=== PATIENT | female | born 1935 | race Caucasian/White ===

== ENCOUNTER 2018-02-08 22:43 | Inpatient (IN) | payer OTHER, MEDICARE ==
--- OUTSIDE RECORDS SUMMARY | 2018-02-08 22:44 | XMS REPORT | Clinical Summary ---
:1935 Author Organization [facility] Address [address] [place] [address] Care Team Providers Name Role Phone Shannon Kyle MD Primary Care Provider Unavailable Allergies Active Allergy Reactions Severity Noted Date Comments Cefazolin 10/10/2015 Codeine 10/10/2015 Propoxyphene N-Acetaminophen 10/10/2015 Current Medications Prescription Sig. Disp. Refills Start Date End Date Status LANTUS 100 unit/mL 09/22/2015 Active injection clopidogrel (PLAVIX) Take 1 tablet (75 mg 90 tablet 3 10/21/2015 Active 75 mg tablet total) by mouth daily. lisinopril Take 1 tablet (10 mg 90 tablet 3 10/21/2015 Active (PRINIVIL,ZESTRIL) total) by mouth tablet daily. metoprolol succinate Take 1 tablet (25 mg 90 tablet 3 10/21/2015 Active XL (TOPROL-XL) 25 MG total) by mouth 24 hr tablet daily. nitroglycerin Place 1 patch (0.2 90 patch 3 10/21/2015 Active (NITRODUR) mg total) on the skin daily. pantoprazole Take 1 tablet (40 mg 90 tablet 3 10/21/2015 Active (PROTONIX) 40 MG EC total) by mouth tablet daily. simvastatin (ZOCOR) Take 1 tablet (20 mg 90 tablet 3 10/21/2015 Active 20 MG tablet total) by mouth nightly. insulin GLARGINE Inject 30 Units 1 pen 3 10/27/2015 Active (LANTUS) 100 unit/mL under the skin every (3 mL) insulin pen morning before breakfast. pen needle, diabetic Use daily as 100 each 2 10/28/2015 Active (BD ULTRA-FINE MICHAEL directed for insulin PEN NEEDLES) 32 administration gauge x 5/32" needle nitroglycerin 04/05/2016 Active (NITRODUR) 0.4 mg/hr RANEXA 500 mg 12 hr 02/19/2016 Active ER tablet Active Problems Problem Noted Date Dementia without behavioral disturbance 04/13/2016 Essential hypertension 10/21/2015 Diabetes mellitus 10/10/2015 Herpes zoster 10/10/2015 HLD (hyperlipidemia) 10/10/2015 Knee pain 10/10/2015 Pain in extremity 10/10/2015 Swelling of limb 10/10/2015 Vertigo, late effect of cerebrovascular disease 10/10/2015 Vitamin B12 deficiency without anemia 10/10/2015 Coronary arteriosclerosis 10/10/2015 Immunizations Name Dates Previously Given Next Due FLUZONE HIGH-DOSE PF 04/13/2016, 10/21/2015 Pneumococcal Conjugate 13-Valent 10/21/2015 Pneumococcal Polysaccharide 08/12/2011 Tdap 08/12/2011 Family History Medical History Relation Name Comments Emphysema Father Heart failure Father Diabetes Mother Hypertension Mother Uterine cancer Mother Breast cancer Sister Relation Name Status Comments Father Mother Sister Social History Tobacco Use Types Packs/Day Years Used Date Never Smoker Smokeless Tobacco: Never Used Alcohol Use Drinks/Week oz/Week Comments No Sex Assigned at Date Recorded Not on file Last Filed Vital Signs Not on file Plan of Treatment Health Maintenance Due Date Last Done Comments DIABETIC RETINAL EYE EXAM 11/13/1945 SHINGRIX VACCINE (#1) 11/13/1987 ZOSTER VACCINE 1997 DIABETIC FOOT EXAM 06/12/2016 06/12/2015, 06/12/2015 URINE MICROALBUMIN 04/13/2017 04/13/2016, 04/13/2016, 10/21/2015 INFLUENZA VACCINE 03/12/2018 04/13/2016, 10/21/2015 PNEUMOCOCCAL POLYSACCHARIDE VACCINE Completed 08/12/2011 AGE 65 AND OVER PNEUMOCOCCAL-13 Completed 10/21/2015 Results Not on fileafter 02/07/2017 Insurance Payer Benefit Plan / Group Subscriber ID Type Phone Address MEDICARE MEDICARE PART A AND B xxxxxxxxxx Medicare [place], [place] AARP AARP SUPPLEMENT xxxxxxxxxxx Commercial [phone] [place] [id number]
--- OUTSIDE RECORDS SUMMARY | 2018-02-08 22:45 | XMS REPORT ---
:1935 [facility] Address [address] [place] [address] [address] [place] [address] Care Team Providers Name Role Phone DR MERISSA HENNING Unavailable Unavailable Problems This patient has no known problems. Allergies, Adverse Reactions, Alerts This patient has no known allergies or adverse reactions. Medications This patient has no known medications. Encounters Start End Encounter Admission Attending Care Care Encounter Date/Time Date/Time Type Type Clinicians Facility Department ID 2017-09-10 2017-10-04 Inpatient E [facility] [id number] 21:32:00 16:21:00 MERISSA Results Test Description Test Time Test Comments Text Results Atomic Results Result Comments BASIC METABOLIC PANEL 2017-10-03 15:14:00 Test Item Value Reference Range Comments GLUCOSE (test code=06D) 170 mg/dL 75-100 SODIUM (test code=01A) 131 mmol/L 136-145 POTASSIUM (test code=01B) 4.7 mmol/L 3.6-5.1 CHLORIDE (test code=04A) 101 mmol/L 98-107 CO2 (test code=02A) 27 mmol/L 22-32 ANION GAP (test code=ANG) 7.7 mmol/L BUN (test code=05D) 21 mg/dL 7-18 CREATININE (test code=03E) 1.2 mg/dL 0.4-1.1 BUN/CREA (test code=BCR) 18 12-20 CALCIUM (test code=09D) 9.6 mg/dL 8.3-9.5 U/S VENOUS DOPPLER MICHELLE LOW [id number] 17:13:19Bilateral lower extremity venous DopplerLocation code: R1ISASIDNP HISTORY: M79.89: OTHER SPECIFIED SOFT TISSUE DISORDERS, swellingTechnique: Grayscale, color, and Doppler spectral waveform analysis ofthe deepveins of the bilateral lower extremity deep veins was performed.FINDINGS: Normal color flowand compressibility is present within bilateralcommon femoral, superficial femoral, popliteal and posterior tibial veins.There is a large simple appearing cyst within the right popliteal fossameasuring5.2 x 4.7 x 3.1 cm.With the left popliteal fossa, there is a large simple-appearing cyst, as wellmeasuring 4.2 x 3.3 x 0.8 cm.IMPRESSION:1. Negative for DVT bilaterally.2. Simple appearing Reyez's cysts within the popliteal fossa bilaterally.B12 [id number] 06:45:00 Test Item Value Reference Range Comments VIT B12 (test code=A60) 213.0 pg/mL 180.0-914.0 [id number] 06:45:00 Test Item Value Reference Range Comments FOLATE (test code=A75) 33.8 ng/mL 3.1-17.5 LIPID [id number] 06:45:00 Test Item Value Reference Range Comments CHOLESTROL (test code=44A) 116 mg/dL 140-200 TRIGLYCERI (test code=42B) 111 mg/dL <=149 HDL (test code=83D) 60.0 mg/dL 40.0-60.0 LDL (test code=34B) 52 mg/dL <=99 CHL/HDL (test code=CHR) 1.9 0.0-3.4 THYROID PANEL/SCREEN (TSH)2017-09-11 06:31:00 Test Item Value Reference Range Comments TSH (test code=A57) 2.520 uIU/mL 0.358-3.740 [id number] 06:25:00 Test Item Value Reference Range Comments PREALBUMIN (test code=08E) 21 mg/dL 18-38 [id number] 06:13:00 Test Item Value Reference Range Comments Hb A1C % (test code=HBA) 6.7 % 4.2-6.3 [id number] 06:06:00 Test Item Value Reference Range Comments MAGNESIUM (test code=48A) 1.8 mg/dL 1.8-2.4 ALCOHOL BLOOD (ETOH)2017-09-10 19:23:00 Test Item Value Reference Range Comments ETOH (test code=HALC) ETHANOL The result is to be used only for medical purposes ALCOHOL (test code=56A) <10 mg/dL <=10 COMPREHENSIVE METABOLIC [id number] 19:22:00 Test Item Value Reference Range Comments GLUCOSE (test code=06D) 120 mg/dL 75-100 SODIUM (test code=01A) 136 mmol/L 136-145 POTASSIUM (test code=01B) 4.0 mmol/L 3.6-5.1 CHLORIDE (test code=04A) 104 mmol/L 98-107 CO2 (test code=02A) 24 mmol/L 22-32 ANION GAP (test code=ANG) 12.0 mmol/L BUN (test code=05D) 12 mg/dL 7-18 CREATININE (test code=03E) 0.9 mg/dL 0.4-1.1 BUN/CREA (test code=BCR) 14 12-20 CALCIUM (test code=09D) 9.0 mg/dL 8.3-9.5 BILI TOTAL (test code=11A) 0.6 mg/dL 0.2-1.0 PROTEIN (test code=07D) 7.0 g/dL 6.4-8.2 ALBUMIN (test code=08D) 3.9 g/dL 3.5-4.8 GLOBULIN (test code=GLB) 3.1 g/dL 1.5-3.8 ALB/GLOB (test code=AGRR) 1.3 1.0-2.6 ALK PHOS (test code=35A) 75 IU/L 42-121 AST (test code=30A) 12 IU/L <=42 ALT (test code=31A) 16 IU/L <=78 LIVER [id number] 19:22:00 Test Item Value Reference Range Comments BILI TOTAL (test code=11A) 0.6 mg/dL 0.2-1.0 BILI DIRCT (test code=12A) 0.2 mg/dL 0.0-0.2 BILI INDIR (test code=BILII) 0.4 mg/dL <=0.8 PROTEIN (test code=07D) 7.0 g/dL 6.4-8.2 ALBUMIN (test code=08D) 3.9 g/dL 3.5-4.8 GLOBULIN (test code=GLB) 3.1 g/dL 1.5-3.8 ALB/GLOB (test code=AGRR) 1.3 1.0-2.6 ALK PHOS (test code=35A) 75 IU/L 42-121 AST (test code=30A) 12 IU/L <=42 ALT (test code=31A) 16 IU/L <=78 [id number] 19:22:00 Test Item Value Reference Range Comments ACETAMINPH (test code=94M) <2.0 ug/mL 10.0-30.0 [id number] 19:22:00 Test Item Value Reference Range Comments SALICYLATE (test code=94B) <1.7 mg/dL 2.8-20.0 CARDIAC [id number] 19:20:00 Test Item Value Reference Range Comments TROPONIN I (test code=A84) <0.015 ng/mL 0.000-0.045 CKMB (test code=A49) 1.3 ng/mL <=3.6 CPK (test code=32A) 44 IU/L 26-192 AMMONIA [id number] 19:15:00 Test Item Value Reference Range Comments AMMONIA (test code=54A) 11 umol/L 11-32 CBC (INCLUDES AUTOMATED DIFFERENTIAL)2017-09-10 18:56:00 Test Item Value Reference Range Comments WBC (test code=WBC) 9.3 10\S\3/uL 4.5-11.0 RBC (test code=RBC) 3.87 10\S\6/uL 3.80-5.80 HGB (test code=HBG) 11.6 g/dL 12.0-15.5 HCT (test code=HCT) 33.7 % 35.0-44.0 MCV (test code=MCV) 87.1 fL 81.0-99.0 MCH (test code=MCH) 30.0 pg 27.0-31.0 MCHC (test code=MCHC) 34.4 g/dL 32.0-36.0 RDW (test code=RDW) 13.2 % 11.5-14.5 PLT (test code=PLT) 141 10\S\3/uL 130-400 MPV (test code=MPV) 11.8 fL 9.4-12.4 NEUTROP # (test code=NE#) 7.2 10\S\3/uL 1.6-8.0 LYMPH # (test code=LY#) 1.3 10\S\3/uL 1.1-3.5 MONOCYTE # (test code=MO#) 0.6 10\S\3/uL 0.0-1.1 EOSINOPH # (test code=EO#) 0.1 10\S\3/uL 0.0-0.7 BASOPHIL # (test code=BA#) 0.1 10\S\3/uL 0.0-0.3 IG # (test code=IG#) 0.06 10\S\3/uL 0.00-0.06 NRBC # (test code=NRBC#) 0.00 10\S\3/uL 0.00-0.01 NEUTROPH % (test code=NE%) 77.3 % 35.0-73.0 LYMPH % (test code=LY%) 14.5 % 20.0-55.0 MONO % (test code=MO%) 6.3 % 2.5-10.0 EOSINOPH % (test code=EO%) 0.8 % 0.0-5.0 BASOPHIL % (test code=BA%) 0.5 % 0.0-2.0 IG % (test code=IG%) 0.6 % 0.0-0.8 NRBC% (test code=NRBC%) 0.0 % 0.0-0.2 MANDIFF (test code=MDIFF) NO NO RBC MORPH (test code=RBCMOR) NORMAL CT HEAD W/O [id number] 18:40:44Noncontrast CT of the brainLOCATION: R 16Clinical indication:Psychotic behaviorComparison: None5 mmaxial series are provided from the skull base to vertex withoutintravenous contrast. Coronal and sagittal 5 mm reconstructions are alsoperformed One or more of the following dose reduction techniques were used:Automated exposure control, adjustment of the MA and/or kV according to patientsize, and/or utilization of iterative reconstruction technique. DLP 845 mGy*cm.There is moderate cerebral atrophy.Moderate ventricular enlargement isdemonstrated which may represent evidence of hydrocephalus. Whitematterlucency, particularly in the frontal lobes is demonstrated.There is no evidence of mass, mass effect, hemorrhage, acute infarct,extra-axial collection or calvarial abnormality. Visualized portions of theparanasal sinuses are well aerated.Impression:1. Ventricles are moderately enlarged and may be enlarged disproportionate toatrophy. Hydrocephalus is considered.2. Moderate atrophy and white matter lucency likely representing small vesseldisease.3. No evidence of intracranial hemorrhageDRUGS OF [id number] 18:34:00 Test Item Value Reference Range Comments DRUG SCRN (test code=HDOA) URINE DRUG SCREEN This is an unconfirmed screening result and should not be used for non-medical purposes CANNABINOD (test code=88C) Negative NEGATIVE AMPHETAMINE (test code=84A) Negative NEGATIVE BENZODIAZP (test code=86A) Negative NEGATIVE BARBITURAT (test code=85A) Negative NEGATIVE OPIATES (test code=92B) Negative NEGATIVE COCAINE (test code=87A) Negative NEGATIVE PHENCYCLID (test code=66A) Negative NEGATIVE METHADONE (test code=64A) Negative NEGATIVE DOAH (test code=DOAH) URINE DRUG SCREEN Cut-off values are as follows: ---- Cannabinoids 50 ng/mL Cocaine 300 ng/mL Amphetamines 1000 ng/mL Phencyclidine 25 ng/mL Benzodiazepines 200 ng.mL Methadone 300 ng/mL Barbiturates 200 ng/mL Opiates 2000 ng/mL [id number] 18:27:00 Test Item Value Reference Range Comments COLOR (test code=COLU) YELLOW YELLOW CLARITY (test code=CLA) CLEAR CLEAR GLUCOSE UR (test code=UA GLUCOSE) NEGATIVE NEGATIVE BILI UR (test code=BILE) NEGATIVE NEGATIVE KETONES UR (test code=MISSY) NEGATIVE NEGATIVE SP GRAVITY (test code=SPGR) 1.004 1.005-1.030 PH UR (test code=PH) 7.0 4.5-8.0 PROTEIN UR (test code=PU) NEGATIVE NEGATIVE UROBIL UR (test code=UROQ) 1.0 EU/dL 0.2-1.0 NITRITE UR (test code=NITRITE) NEGATIVE NEGATIVE BLOOD UR (test code=UA BLOOD) NEGATIVE NEGATIVE LEUK ES UR (test code=LEUK) NEGATIVE NEGATIVE AUAM (test code=AUAM) NO NO XR CHEST 1 VIEW [id number] 17:33:50STUDY: Chest radiographHISTORY: Psychiatric treatment change.COMPARISON: NoneTECHNIQUE: Frontal viewof the chest.LOCATION: [id number]:Median sternotomy wires are noted.The cardiac silhouette is unremarkable. Faint bibasilar densities likelyreflect subsegmental atelectasis. Otherwise, there is no other focalconsolidation. There is no pleural effusion or pneumothorax.No acute osseous abnormalities are identified.IMPRESSION:1. Faint bibasilar densities likely reflecting subsegmental atelectasis.Otherwise, no radiographic evidence for acute pulmonary abnormality.
[2018-02-08 23:29] LABS: Absolute Lymphocytes (CBC) 1.5 K/uL (0.7-4.9); Absolute Monocytes 1.1 K/uL (0.1-1.3); Absolute Neutrophil 10.5 K/uL (1.8-8.0); Basophils % 0.7 % (0-1.3); Eosinophils % 0.1 % (0-4.4); Hematocrit 44.7 % (36.0-45.0); Lymphocytes % 11.1 % (15.3-44.8); MCH 30.4 pg (27.0-35.0); MCV 92.1 fL (80-100); MPV 10.4 fL (7.6-11.3); Monocytes % 8.3 % (3.3-12.3); RBC Red Blood Cell Count 4.86 M/uL (3.86-4.86)
[2018-02-08 23:37] LABS: Protime INR 0.99
[2018-02-08] MEDS ORDERED: NA CHLORIDE 0.9% 1,000 ML ONE (23:39)
[2018-02-08 23:46] LABS: Albumin 3.9 g/dL (3.4-5.0); Bilirubin Direct 0.1 mg/dL (0-0.2); Bilirubin Total 0.4 mg/dL (0.2-1.0); Magnesium 2.1 mg/dL (1.8-2.4); Potassium 5.1 mmol/L (3.5-5.1)
[2018-02-09] MEDS ORDERED: NA CHLORIDE 0.9% 1,000 ML ONE (00:05)
[2018-02-09 00:45] LABS: Urine Blood NEGATIVE (NEG); Urine Glucose NEGATIVE (NEG); Urine Protein NEGATIVE (NEG); Urine pH 6.5 (5.0-7.0)
[2018-02-09] MEDS ORDERED: CEFTRIAXONE/SWI 1gm 1 GM/10 ML SYR ONE (01:06)
[2018-02-09] MEDS ORDERED: ASPIRIN 81 MG CHEWABLE TABLET ONE (01:06)
[2018-02-09] MEDS ORDERED: ENOXAPARIN 60 MG/0.6 ML SQ ONE (01:07)
--- NOTE | 2018-02-09 01:07 | EDPHYS ---
Physician Documentation [facility] Name: Lizzy Peralta Age: 82 yrs Sex: Female : 1935 Arrival Date: 02/08/2018 Time: 23:02 Bed 2 Private MD: ED Physician Cayden Khan HPI: 02/09 01:01 This 82 yrs old Female presents to ER via EMS with complaints of Altered zackery Mental Status. 01:01 The patient presents with decreased mental status. Onset: The symptoms/episode zackery began/occurred last night. Possible causes: unknown. Associated signs and symptoms: The patient has no apparent associated signs or symptoms. Patient's baseline: Neuro:. The patient has not experienced similar symptoms in the past. Historical: - Allergies: 02/08 23:20 Codeine; lp1 23:20 Levaquin; lp1 - Home Meds: 23:20 Aricept 23 mg oral tab nightly [Active]; aspirin 81 mg Oral chew 1 tab once daily lp1 [Active]; atorvastatin 10 mg Oral tab 1 tab nightly [Active]; Depakote Sprinkles 125 mg Oral cpSP 3 caps 3 times per day [Active]; Fish Oil 500 mg oral cap 2 cap daily [Active]; Lasix 40 mg Oral tab 1 tab once daily [Active]; lisinopril 5 mg oral tab twice a day [Active]; melatonin 3 mg Oral tab nightly [Active]; metoprolol tartrate 50 mg Oral tab nightly [Active]; multivitamin with minerals oral tab daily [Active]; nitroglycerin 0.4 mg/hr Topical pt24 1 patch once daily [Active]; Novolog Flexpen 100 unit/mL subcutaneous inpn per sliding scale [Active]; Plavix 75 mg Oral tab 1 tab once daily [Active]; potassium chloride 20 mEq Oral TbER 2 tab once daily [Active]; Ranexa 500 mg Oral Tb12 1 tab 2 times per day [Active]; Vitamin C 500 mg oral tab twice a day [Active]; Vitamin D3 2,000 unit oral cap daily [Active]; Xopenex Inhl 2 puff every 4 hours [Active]; - PMHx: 23:20 dysphagia; Alzheimers; Diabetes - IDDM; Hyperlipidemia; Dementia; GERD; CAD; TIA; lp1 Hypertension; Asthma; Angina; - Immunization history:: Adult Immunizations up to date. - Social history:: Smoking status: unknown. - Ebola Screening: : No symptoms or risks identified at this time. - Family history:: not pertinent. ROS: 02/09 01:01 Constitutional: Negative for fever, chills, and weight loss, Eyes: Negative for injury, zackery pain, redness, and discharge, ENT: Negative for injury, pain, and discharge, Neck: Negative for injury, pain, and swelling, Cardiovascular: Negative for chest pain, palpitations, and edema, Respiratory: Negative for shortness of breath, cough, wheezing, and pleuritic chest pain, Abdomen/GI: Negative for abdominal pain, nausea, vomiting, diarrhea, and constipation, Back: Negative for injury and pain, : Negative for injury, bleeding, discharge, and swelling, MS/Extremity: Negative for injury and deformity, Skin: Negative for injury, rash, and discoloration, Psych: Negative for depression, anxiety, suicide ideation, homicidal ideation, and hallucinations, Allergy/Immunology: Negative for hives, rash, and allergies, Endocrine: Negative for neck swelling, polydipsia, polyuria, polyphagia, and marked weight changes, Hematologic/Lymphatic: Negative for swollen nodes, abnormal bleeding, and unusual bruising. Neuro: Positive for altered mental status, weakness. Exam: 01:01 Constitutional: This is a well developed, well nourished patient who is awake, alert, zackery and in no acute distress. Head/Face: Normocephalic, atraumatic. Eyes: Pupils equal round and reactive to light, extra-ocular motions intact. Lids and lashes normal. Conjunctiva and sclera are non-icteric and not injected. Cornea within normal limits. Periorbital areas with no swelling, redness, or edema. ENT: Nares patent. No nasal discharge, no septal abnormalities noted. Tympanic membranes are normal and external auditory canals are clear. Oropharynx with no redness, swelling, or masses, exudates, or evidence of obstruction, uvula midline. Mucous membranes moist. Neck: Trachea midline, no thyromegaly or masses palpated, and no cervical lymphadenopathy. Supple, full range of motion without nuchal rigidity, or vertebral point tenderness. No Meningismus. Chest/axilla: Normal chest wall appearance and motion. Nontender with no deformity. No lesions are appreciated. Cardiovascular: Regular rate and rhythm with a normal S1 and S2. No gallops, murmurs, or rubs. Normal PMI, no JVD. No pulse deficits. Abdomen/GI: Soft, non-tender, with normal bowel sounds. No distension or tympany. No guarding or rebound. No evidence of tenderness throughout. Back: No spinal tenderness. No costovertebral tenderness. Full range of motion. Skin: Warm, dry with normal turgor. Normal color with no rashes, no lesions, and no evidence of cellulitis. MS/ Extremity: Pulses equal, no cyanosis. Neurovascular intact. Full, normal range of motion. Neuro: Awake and alert, GCS 15, oriented to person, place, time, and situation. Cranial nerves II-XII grossly intact. Motor strength 5/5 in all extremities. Sensory grossly intact. Cerebellar exam normal. Normal gait. Psych: Awake, alert, with orientation to person, place and time. Behavior, mood, and affect are within normal limits. 01:01 Respiratory: the patient does not display signs of respiratory distress, Respirations: normal, Breath sounds: decreased breath sounds. Vital Signs: 02/08 23:07 BP 130 / 67; Pulse 93; Resp 19; Temp 98.4(A); Pulse Ox 100% on R/A; Weight 61.23 kg; lp1 02/09 00:24 BP 115 / 63; Pulse 90; Resp 18; Pulse Ox 87% on R/A; bb 01:40 BP 130 / 63; Pulse 98; Resp 18; Pulse Ox 100% on 2 lpm NC; bb Joseluis Coma Score: 02/08 23:07 Eye Response: to voice(3). Verbal Response: confused(4). Motor Response: obeys lp1 commands(6). Total: 13. MDM: 23:12 Patient medically screened. [facility] 02/09 01:03 Data reviewed: vital signs, nurses notes, lab test result(s), EKG, radiologic studies, [facility] CT scan, plain films. 02/08 23:13 Order name: Basic Metabolic Panel; Complete Time: 00:56 [facility] 02/08 23:13 Order name: CBC with Diff; Complete Time: 00:56 [facility] 02/08 23:13 Order name: Ckmb; Complete Time: 00:56 [facility] 02/08 23:13 Order name: CPK; Complete Time: 00:56 [facility] 02/08 23:13 Order name: LFT's; Complete Time: 00:56 [facility] 02/08 23:13 Order name: Magnesium; Complete Time: 00:56 [facility] 02/08 23:13 Order name: NT PRO-BNP; Complete Time: 00:56 [facility] 02/08 23:13 Order name: PT-INR; Complete Time: 00:56 [facility] 02/08 23:13 Order name: Ptt, Activated; Complete Time: 00:56 [facility] 02/08 23:13 Order name: Troponin (emerg Dept Use Only); Complete Time: 00:56 [facility] 02/08 23:13 Order name: Urine Culture [facility] 02/08 23:13 Order name: Lipase; Complete Time: 00:56 [facility] 02/09 00:30 Order name: Urine Dipstick--Ancillary (enter results); Complete Time: 00:56 02/09 00:56 Order name: Depakote; Complete Time: 01:17 [facility] 02/08 23:13 Order name: XRAY Chest (1 view) [facility] 02/08 23:13 Order name: CT Head Brain wo Cont [facility] 02/09 01:14 Order name: Basic Metabolic Panel [facility] 02/09 01:14 Order name: Basic Metabolic Panel [facility] 02/09 01:14 Order name: CBC with Automated Diff [facility] 02/09 01:14 Order name: CBC with Automated Diff [facility] 02/09 01:14 Order name: Troponin I [facility] 02/09 01:14 Order name: Troponin I [facility] 02/09 01:14 Order name: Troponin I [facility] 02/09 01:14 Order name: Chest Single View [facility] 02/09 01:14 Order name: Chest Single View [facility] 02/08 23:13 Order name: EKG; Complete Time: 23:14 [facility] 02/08 23:13 Order name: Cardiac monitoring; Complete Time: 23:27 [facility] 02/08 23:13 Order name: EKG - Nurse/Tech; Complete Time: 00:35 zackery 02/08 23:13 Order name: IV Saline Lock; Complete Time: 23:27 [facility] 02/08 23:13 Order name: Labs collected and sent; Complete Time: 23:27 [facility] 02/08 23:13 Order name: O2 Per Protocol; Complete Time: 23:27 [facility] 02/08 23:13 Order name: O2 Sat Monitoring; Complete Time: 23:27 [facility] 02/08 23:13 Order name: Urine Dipstick-Ancillary (obtain specimen); Complete Time: 00:24 [facility] 02/09 01:14 Order name: CONS Physician Consult [facility] 02/09 01:14 Order name: Consistent Carb (ADA) 1800 Tamir [facility] 02/09 01:14 Order name: EKG Electrocardiogram [facility] 02/09 01:14 Order name: EKG Electrocardiogram [facility] 02/09 01:14 Order name: EKG Electrocardiogram [facility] 02/09 01:14 Order name: EKG Electrocardiogram [facility] 02/09 01:21 Order name: Jamison; Complete Time: 01:30 [facility] Administered Medications: 02/08 23:33 Drug: NS 0.9% 1000 ml Route: IV; Rate: 125 ml/hr; Site: right antecubital; bb 02/09 01:21 Follow up: IV Status: Infusion continued upon admission lp1 01:20 Not Given (Physician Discretion): Aspirin Chewable Tablet 162 mg PO once lp1 01:20 Drug: Rocephin - (cefTRIAXone) 1 grams Route: IVPB; Infused Over: 30 mins; Site: right lp1 antecubital; 01:30 Follow up: IV Status: Completed infusion; IV Intake: 10ml ; per protocol bb 02:05 Follow up: IV Status: Infusion continued upon admission bb 01:20 Drug: Lovenox 50 mg Route: Sub-Q; Site: right lower abdomen; lp1 02:05 Follow up: Response: No adverse reaction bb 01:30 Drug: Aspirin Suppository 300 mg Route: RI; bb 02:05 Follow up: Response: No adverse reaction Point of Care Testing: Blood Glucose: 02/08 23:07 Blood Glucose: 153 mg/dL; lp1 Ranges: Critical Glucose Levels:Adult <50 mg/dl or >400 mg/dl <40 mg/dl or >180 mg/dl Disposition: 02/09/18 01:06 Hospitalization ordered by Gomez Day for Inpatient Admission. Preliminary diagnosis are Dyspnea, Unspecified kidney failure, Cystitis, Non-ST elevation (NSTEMI) myocardial infarction, Altered mental status, unspecified, Type 1 diabetes mellitus, Acute kidney failure. - Bed requested for Telemetry/MedSurg (Inpatient). - Status is Inpatient Admission. lp1 - Condition is Stable. - Problem is new. - Symptoms are unchanged. UTI on Admission? Yes Signatures: Dispatcher [employer] EDMS Cayden Khan MD MD cha Ballard, Brenda RN RN Asuncion Gibbs RN RN lp1 Corrections: (The following items were deleted from the chart) 02/09 01:18 01:06 Hospitalization Ordered by Gomez Day MD for Inpatient Admission. Preliminary [facility] diagnosis is Dyspnea; Unspecified kidney failure; Cystitis; Non-ST elevation (NSTEMI) myocardial infarction; Altered mental status, unspecified; Type 1 diabetes mellitus. Bed requested for Telemetry/MedSurg (Inpatient). Status is Inpatient Admission. Condition is Stable. Problem is new. Symptoms are unchanged. UTI on Admission? Yes. [facility] 01:58 01:18 02/09/2018 01:06 Hospitalization Ordered by Gomez Day MD for Inpatient zackery Admission. Preliminary diagnosis is Dyspnea; Unspecified kidney failure; Cystitis; Non-ST elevation (NSTEMI) myocardial infarction; Altered mental status, unspecified; Type 1 diabetes mellitus; Acute kidney failure. Bed requested for Telemetry/MedSurg (Inpatient). Status is Inpatient Admission. Condition is Stable. Problem is new. Symptoms are unchanged. UTI on Admission? Yes. zackery 02:25 01:58 02/09/2018 01:06 Hospitalization Ordered by Gomez Day MD for Inpatient lp1 Admission. Preliminary diagnosis is Dyspnea; Unspecified kidney failure; Cystitis; Non-ST elevation (NSTEMI) myocardial infarction; Altered mental status, unspecified; Type 1 diabetes mellitus; Acute kidney failure. Bed requested for Telemetry/MedSurg (Inpatient). Status is Inpatient Admission. Condition is Stable. Problem is new. Symptoms are unchanged. UTI on Admission? Yes. zackery
--- NOTE | 2018-02-09 01:07 | ER ---
Nurse's Notes [facility] Name: Lizzy Peralta Age: 82 yrs Sex: Female : 1935 Arrival Date: 02/08/2018 Time: 23:02 Bed 2 Private MD: Diagnosis: Dyspnea;Unspecified kidney failure;Cystitis;Non-ST elevation (NSTEMI) myocardial infarction;Altered mental status, unspecified;Type 1 diabetes mellitus;Acute kidney failure Presentation: 02/08 23:04 Presenting complaint: EMS states: Per [facility] staff, patient has dementia but lp1 normally will respond and follow commands, tonight patient not responding or following commands; Vitals WNL. Transition of care: patient was received from another setting of care ([facility]. Onset of symptoms was February 08, 2018. Risk Assessment: Do you want to hurt yourself or someone else? Patient reports no desire to harm self or others. Initial Sepsis Screen: Does the patient meet any 2 criteria? No. Patient's initial sepsis screen is negative. Does the patient have a suspected source of infection? No. Patient's initial sepsis screen is negative. Care prior to arrival: Glucose check: 135. 23:04 Method Of Arrival: EMS: [facility] lp1 23:04 Acuity: SPENSER 3 lp1 Historical: - Allergies: 23:20 Codeine; lp1 23:20 Levaquin; lp1 - Home Meds: 23:20 Aricept 23 mg oral tab nightly [Active]; aspirin 81 mg Oral chew 1 tab once daily lp1 [Active]; atorvastatin 10 mg Oral tab 1 tab nightly [Active]; Depakote Sprinkles 125 mg Oral cpSP 3 caps 3 times per day [Active]; Fish Oil 500 mg oral cap 2 cap daily [Active]; Lasix 40 mg Oral tab 1 tab once daily [Active]; lisinopril 5 mg oral tab twice a day [Active]; melatonin 3 mg Oral tab nightly [Active]; metoprolol tartrate 50 mg Oral tab nightly [Active]; multivitamin with minerals oral tab daily [Active]; nitroglycerin 0.4 mg/hr Topical pt24 1 patch once daily [Active]; Novolog Flexpen 100 unit/mL subcutaneous inpn per sliding scale [Active]; Plavix 75 mg Oral tab 1 tab once daily [Active]; potassium chloride 20 mEq Oral TbER 2 tab once daily [Active]; Ranexa 500 mg Oral Tb12 1 tab 2 times per day [Active]; Vitamin C 500 mg oral tab twice a day [Active]; Vitamin D3 2,000 unit oral cap daily [Active]; Xopenex Inhl 2 puff every 4 hours [Active]; - PMHx: 23:20 dysphagia; Alzheimers; Diabetes - IDDM; Hyperlipidemia; Dementia; GERD; CAD; TIA; lp1 Hypertension; Asthma; Angina; - Immunization history:: Adult Immunizations up to date. - Social history:: Smoking status: unknown. - Ebola Screening: : No symptoms or risks identified at this time. - Family history:: not pertinent. Screenin:21 Abuse screen: Denies threats or abuse. Denies injuries from another. Nutritional lp1 screening: No deficits noted. Tuberculosis screening: No symptoms or risk factors identified. Fall Risk Total Watson Fall Scale indicates High Risk Score (45 or more points). Fall prevention measures have been instituted. Side Rails Up X 2. Assessment: 23:15 General: Appears in no apparent distress. Behavior is calm, flat, quiet. Pain: Unable bb to use pain scale. FLACC scale score is 0 out of 10. Neuro: Level of Consciousness is awake, listless, Oriented to person. Cardiovascular: Heart tones S1 S2 present Capillary refill < 3 seconds Patient's skin is warm and dry. Pulses are all present. Edema is absent. Respiratory: Airway is patent Respiratory effort is even, unlabored, Respiratory pattern is regular, Breath sounds are clear bilaterally. GI: Abdomen is non-distended, Bowel sounds present X 4 quads. Abd is soft and non tender X 4 quads. Derm: Skin is thin, bruises Skin is dry, Skin is pale, Skin temperature is warm. Musculoskeletal: Capillary refill < 3 seconds. 23:15 Reassessment: No changes from previously documented assessment. pt returned from CT via bb stretcher with oncology technician, IV site intact, patent. 02/09 00:34 General: Appears in no apparent distress. Behavior is calm. Cardiovascular: Patient's lp1 skin is warm and dry. Respiratory: Respiratory effort is even, unlabored. Derm: Bruising that is green, on lateral aspect of right thigh. 01:39 Reassessment: Patient and/or family updated on plan of care and expected duration. Pain bb level reassessed. pt resting quietly, IV site intact, heard catheter in place to bedside drain, awaiting room assignment. 02:03 Reassessment: no change in pt condition IV site intact, heard catheter in place, report bb called to Ana Lilia FLORES for room 407. Vital Signs: 02/08 23:07 BP 130 / 67; Pulse 93; Resp 19; Temp 98.4(A); Pulse Ox 100% on R/A; Weight 61.23 kg; lp1 02/09 00:24 BP 115 / 63; Pulse 90; Resp 18; Pulse Ox 87% on R/A; bb 01:40 BP 130 / 63; Pulse 98; Resp 18; Pulse Ox 100% on 2 lpm NC; bb Joseluis Coma Score: 02/08 23:07 Eye Response: to voice(3). Verbal Response: confused(4). Motor Response: obeys lp1 commands(6). Total: 13. ED Course: 22:55 Inserted saline lock: 22 gauge in right antecubital area, using aseptic technique. bb Blood collected. 23:02 Patient arrived in ED. lp1 23:06 Triage completed. lp1 23:06 Arm band placed on right wrist. lp1 23:12 Cayden Khan MD is Attending Physician. zackery 23:21 Asuncion Gibbs, RN is Primary Nurse. lp1 23:21 Patient has correct armband on for positive identification. Placed in gown. Bed in low lp1 position. Side rails up X2. cafeteria monitor on. Pulse ox on. NIBP on. 23:[address] via stretcher. kw1 23:43 CT completed. Patient tolerated procedure well. Patient moved back from CT. kw1 23:46 CT Head Brain wo Cont In Process Unspecified. EDMS 02/09 00:10 XRAY Chest (1 view) In Process Unspecified. EDMS 00:23 Urine collected: straight cath specimen, clear, by Asuncion Gibbs RN. bb 00:25 Oxygen administration via nasal cannula \T\ 2L/min Response to oxygen therapy: symptoms bb improved. 01:04 Gomez Dya MD is Hospitalizing Provider. zackery 01:21 No provider procedures requiring assistance completed. Patient admitted, IV remains in lp1 place. 01:40 Heard cath inserted, using sterile technique, 16 Fr., by ar, balloon inflated, to bb gravity drainage, Patient tolerated well. Administered Medications: 02/08 23:33 Drug: NS 0.9% 1000 ml Route: IV; Rate: 125 ml/hr; Site: right antecubital; bb 02/09 01:21 Follow up: IV Status: Infusion continued upon admission lp1 01:20 Not Given (Physician Discretion): Aspirin Chewable Tablet 162 mg PO once lp1 01:20 Drug: Rocephin - (cefTRIAXone) 1 grams Route: IVPB; Infused Over: 30 mins; Site: right lp1 antecubital; 01:30 Follow up: IV Status: Completed infusion; IV Intake: 10ml ; per protocol bb 02:05 Follow up: IV Status: Infusion continued upon admission bb 01:20 Drug: Lovenox 50 mg Route: Sub-Q; Site: right lower abdomen; lp1 02:05 Follow up: Response: No adverse reaction bb 01:30 Drug: Aspirin Suppository 300 mg Route: IA; bb 02:05 Follow up: Response: No adverse reaction Point of Care Testing: Blood Glucose: 02/08 23:07 Blood Glucose: 153 mg/dL; lp1 Ranges: Intake: 02/09 01:30 IV: 10ml; Total: 10ml. bb Outcome: 01:06 Decision to Hospitalize by Provider. zackery 01:21 Condition: stable lp1 01:21 Instructed on the need for admit. 02:04 Admitted to Tele accompanied by mirlande, via stretcher, room 407, with chart, Report bb called to Ana Lilia RN 02:25 Patient left the ED. lp1 Signatures: Dispatcher [employer] EDCayden Cavazos MD MD cha Ballard, Brenda, RN RN bb Asuncion Gibbs, RN RN lp1 Mague Hodge kw1
[2018-02-09] MEDS ORDERED: ONDANSETRON 4 MG/2 ML VIAL IV PRN (01:10)
[2018-02-09] MEDS ORDERED: ACETAMINOPHEN 500 MG TAB PO PRN (01:10)
[2018-02-09] MEDS ORDERED: ASPIRIN 600 MG/SUPP PR ONE (01:25)
[2018-02-09] MEDS ORDERED: LEVALBUTEROL 1.25 MG/3 ML NEB NEB SCH (02:00)
[2018-02-09] MEDS: NA CHLORIDE 0.9% 1,000 ML IV SCH ×2 (02:50→05:58)
[2018-02-09] MEDS: IPRATROPIUM BROM 0.5MG/2.5ML NEB SCH ×4 (03:31→20:21)
[2018-02-09] MEDS: ALBUTEROL 2.5 MG/3 ML NEB SOL NEB SCH ×4 (03:31→20:21)
--- NOTE | 2018-02-09 06:19 | EKG ---
Test Date: 2018-02-09 Test Time: 00:30:36 Sandwich Hand: JUAN DANEIL MEASUREMENT RESULTS: Intervals: Rate: 91 MA: 162 QRSD: 92 QT: 344 QTc: 423 [place]: P: 21 MA: 162 QRS: -24 T: 67 INTERPRETIVE STATEMENTS: Normal sinus rhythm Cannot rule out septal infarct, age undetermined Abnormal ECG No previous ECG available for comparison Electronically Signed On 02-09-18 06:18:53 CDT by Alberto Franks
[2018-02-09] MEDS ORDERED: CLOPIDOGREL 75 MG TABLET PO SCH (09:00)
[2018-02-09] MEDS ORDERED: ASPIRIN EC 81 MG TAB PO SCH (09:00)
[2018-02-09] MEDS ORDERED: FAMOTIDINE 20 MG/2 ML VIAL IV SCH (09:00)
[2018-02-09] MEDS ORDERED: ENOXAPARIN 40 MG/0.4 ML SQ SCH (09:00)
[2018-02-09] MEDS: FAMOTIDINE 20 MG/2 ML VIAL IV SCH (10:28)
[2018-02-09] MEDS: ENOXAPARIN 30 MG/0.3 ML SQ SCH (10:28)
--- NOTE | 2018-02-09 11:19 | P.HP ---
Certification for Inpatient Patient admitted to: Inpatient With expected LOS: >2 Midnights Patient will require the following post-hospital care: Long-Term Practitioner: I am a practitioner with admitting privileges, knowledge of patient current condition, hospital course, and medical plan of care. Services: Services provided to patient in accordance with Admission requirements found in Title 42 Section 412.3 of the Code of Federal Regulations Patient History Date of Service: 02/09/18 Primary Care Provider: Shay Reason for admission: UTI, altered mental status History of Present Illness: Patient is here for altered mental status. She was sent to the ER. Found to have a UTI. Had a negative CT of the head. Had an elevation of her troponins. Allergies codeine Allergy (Unverified 09/14/16 19:39) Unknown levofloxacin [From Levaquin] Allergy (Unverified 09/14/16 19:39) Unknown Home Medications: Ascorbate Calcium [Vitamin C] 500 mg PO DAILY 02/09/18 Aspirin Chewable [Aspirin Chewable*] 81 mg PO DAILY 02/09/18 Atorvastatin Calcium [Lipitor*] 10 mg PO BEDTIME 02/09/18 Cholecalciferol (Vitamin D3) [Vitamin D3] 2,000 unit PO DAILY 02/09/18 Clopidogrel Bisulfate [Plavix*] 75 mg PO DAILY 02/09/18 Divalproex [Depakote Sprinkle*] 125 mg PO TID 02/09/18 Donepezil HCl [Aricept] 23 mg PO BEDTIME 02/09/18 Furosemide [Lasix] 40 mg PO DAILY 02/09/18 Insulin Aspart [Novolog Flexpen] 100 unit SQ PRN 02/09/18 Levalbuterol Tartrate [Xopenex Hfa] 15 gm IH PRN 02/09/18 Lisinopril [Prinivil*] 5 mg PO BID 02/09/18 Melatonin 3 mg PO BEDTIME 02/09/18 Metoprolol Succinate 50 mg PO BEDTIME 02/09/18 Multivitamin with Minerals [Multivitamins with Minerals] 500 mg PO DAILY Nitroglycerin [Minitran] 1 each TD DAILY 02/09/18 [place]-3/Dha/Epa/Fish Oil [Fish Oil 500 mg Softgel] 500 mg PO DAILY 02/09/18 Potassium Chloride [K-Tab ER] 20 meq PO DAILY 02/09/18 Ranolazine [Ranexa] 1,000 mg PO DAILY 02/09/18 - Past Medical/Surgical History Diabetic: Yes -: Alzheimer's Disease -: DM Type 2 -: Hyperlipidemia -: HTN -: Atherosclerotic Heart Disease -: Mild intermittent Asthma -: GERD -: Generalized Muscle Weakness -: TIA -: Coronary Angioplasty implant and graft - Social History Smoking Status: Unknown if ever smoked Alcohol use: No CD- Drugs: No Caffeine use: No Place of Residence: Shelter Review of Systems is unable to be obtained Physical Examination - Vital Signs Temperature: 97.8 F Blood Pressure: 137/64 Pulse: 83 Respirations: 16 Pulse Ox (%): 99 - Physical Exam General: Delirious HEENT: Atraumatic, PERRLA, Mucous membr. moist/pink, EOMI, Sclerae nonicteric Neck: Supple, 2+ carotid pulse no bruit, No LAD, Without JVD or thyroid abnormality Respiratory: Clear to auscultation bilaterally, Normal air movement Cardiovascular: Regular rate/rhythm, Normal S1 S2 Gastrointestinal: Normal bowel sounds, No tenderness Musculoskeletal: No tenderness Integumentary: No rashes Neurological: Normal gait, Normal speech, Normal strength at 5/5 x4 extr, Normal tone, Normal affect Lymphatics: No axilla or inguinal lymphadenopathy - Studies Laboratory Data (last 24 hrs) 02/08/18 22:55: PT 11.7, INR 0.99, APTT 27.0 02/08/18 22:55: WBC 13.2 H, Hgb 14.8, Hct 44.7, Plt Count 182 02/08/18 22:55: Sodium 141, Potassium 5.1, BUN 34 H, Creatinine 1.70 H, Glucose 157 H, Magnesium 2.1, Total Bilirubin 0.4, AST 24, ALT 20, Alkaline Phosphatase 68, Lipase 136 Assessment and Plan - Problems (Diagnosis) (1) UTI (urinary tract infection) Current Visit: Yes Status: Acute Plan: Patient is on fluids and ceftriaxone. Will continue. Await the cultures Qualifiers: Urinary tract infection type: acute cystitis Hematuria presence: without hematuria Qualified Code(s): N30.00 - Acute cystitis without hematuria (2) CAD (coronary artery disease) Current Visit: Yes Status: Acute Plan: Patient has some troponin. No EKG changes. Will monitor her at this time Qualifiers: Coronary Disease-Associated Artery/Lesion type: [place] artery [place] vs. transplanted heart: [place] heart Associated angina: without angina Qualified Code(s): I25.10 - Atherosclerotic heart disease of [place] coronary artery without angina pectoris (3) Dementia Current Visit: Yes Status: Acute Plan: Stable on aricept. Qualifiers: Dementia type: Alzheimer's disease - Advance Directives Does patient have a Living Will: No Does patient have a Durable POA for Healthcare: Yes - Code Status/Comfort Care Code Status Assessed: No Code Status: Full Code Physician Review: Patient Assessed, Agree with Above Assessment and Plan Critical Care: No Time Spent Managing Pts Care (In Minutes): 30
--- NOTE | 2018-02-09 11:20 | RAD REPORT ---
EXAM DESCRIPTION: CT - Head Brain Wo Cont - 02/09/2018 2:21 am CLINICAL HISTORY: DIZZINESS Drowsiness COMPARISON: Facial Bones W/ Mpr dated 07/07/2017; Head Brain Wo Cont dated 09/14/2016 TECHNIQUE: All CT scans are performed using dose optimization technique as appropriate and may inclu de automated exposure control or mA/KV adjustment according to patient size. FINDINGS: No intracranial hemorrhage, hydrocephalus or extra-axial fluid collection.Advanced general ized brain atrophy is present with advanced periventricular and deep white matter chronic microvascul ar ischemic changes.No areas of brain edema or evidence of midline shift. The paranasal sinuses and mastoids are clear. The calvarium is intact. Vertebral atherosclerosis. IMPRESSION: No acute intracranial abnormality.
[2018-02-09] MEDS: D5 0.45 NS 1,000 ML IV SCH ×2 (12:22→21:45)
--- NOTE | 2018-02-09 12:31 | RAD REPORT ---
EXAM DESCRIPTION: RAD - Chest Single View - 02/09/2018 12:08 am CLINICAL HISTORY: COUGH Chest pain. COMPARISON: No comparisons FINDINGS: Portable technique limits examination quality. The lungs are grossly clear. The heart is normal in size. No displaced fractures.Sternotomy wires not ed. IMPRESSION: No acute intrathoracic process suspected.
[2018-02-09] MEDS: LISINOPRIL 5 MG TAB PO SCH ×2 (13:15→21:41)
[2018-02-09] MEDS: VITAMIN D 1000 UNIT TAB PO SCH (13:16)
[2018-02-09] MEDS: ASCORBIC ACID 500 MG TABLET PO SCH (13:17)
[2018-02-09] MEDS: POTASSIUM CL SA 10 MEQ TAB PO SCH (13:17)
[2018-02-09] MEDS: MULTIVIT W/ MINERAL TAB PO SCH (13:17)
[2018-02-09] MEDS: DIVALPROEX NA 125 MG CAP PO SCH ×2 (13:29→21:41)
[2018-02-09] MEDS ORDERED: CEFTRIAXONE 1 GM/NS 50 ML 1 GM/50 ML BAG IV SCH (18:00)
[2018-02-09] MEDS ORDERED: METOPROLOL XL 50 MG TAB PO SCH (21:00)
[2018-02-09] MEDS ORDERED: ATORVASTATIN 10 MG TAB PO SCH (21:00)
[2018-02-09] MEDS ORDERED: HOME MED 1 EA UNK (Donepezil Hcl [Aricept] 23 MG) PO SCH (21:00)
[2018-02-10] MEDS: IPRATROPIUM BROM 0.5MG/2.5ML NEB SCH ×3 (03:00→14:00)
[2018-02-10] MEDS: ALBUTEROL 2.5 MG/3 ML NEB SOL NEB SCH ×3 (03:00→14:00)
[2018-02-10 04:16] LABS: Absolute Lymphocytes (CBC) 1.4 K/uL (0.7-4.9); Absolute Monocytes 0.9 K/uL (0.1-1.3); Absolute Neutrophil 5.8 K/uL (1.8-8.0); Basophils % 0.4 % (0-1.3); Eosinophils % 0.7 % (0-4.4); Hematocrit 30.4 % (36.0-45.0); Lymphocytes % 17.6 % (15.3-44.8); MCH 31.7 pg (27.0-35.0); MPV 10.2 fL (7.6-11.3); Monocytes % 10.8 % (3.3-12.3); RBC Red Blood Cell Count 3.31 M/uL (3.86-4.86)
[2018-02-10 04:23] LABS: Potassium 3.9 mmol/L (3.5-5.1)
[2018-02-10] MEDS: D5 0.45 NS 1,000 ML IV SCH ×2 (06:48→16:56)
[2018-02-10] MEDS ORDERED: HOME MED 1 EA UNK (Omega-3/Dha/Epa/Fish Oil [Fish Oil 500 Mg Softgel] 500 MG) PO SCH (09:00)
[2018-02-10] MEDS ORDERED: ASCORBATE CALCIUM 500 MG PO SCH (09:00)
[2018-02-10] MEDS ORDERED: POTASSIUM CHLORIDE 20 MEQ PO SCH (09:00)
[2018-02-10] MEDS ORDERED: CLOPIDOGREL 75 MG TABLET PO SCH (09:00)
[2018-02-10] MEDS ORDERED: HOME MED 1 EA UNK (Cholecalciferol (Vitamin D3) [Vitamin D3] 2,000 UNIT) PO SCH (09:00)
[2018-02-10] MEDS ORDERED: ASPIRIN 81 MG CHEWABLE TABLET PO SCH (09:00)
[2018-02-10] MEDS ORDERED: MULTIVITAMIN WITH MINERALS PO SCH (09:00)
[2018-02-10] MEDS: VITAMIN D 1000 UNIT TAB PO SCH (09:16)
[2018-02-10] MEDS: LISINOPRIL 5 MG TAB PO SCH (09:17)
[2018-02-10] MEDS: POTASSIUM CL SA 10 MEQ TAB PO SCH (09:17)
[2018-02-10] MEDS: FAMOTIDINE 20 MG/2 ML VIAL IV SCH (09:18)
[2018-02-10] MEDS: ENOXAPARIN 30 MG/0.3 ML SQ SCH (09:18)
[2018-02-10] MEDS: DIVALPROEX NA 125 MG CAP PO SCH ×2 (09:18→14:17)
[2018-02-10] MEDS: MULTIVIT W/ MINERAL TAB PO SCH (09:18)
[2018-02-10] MEDS: ASCORBIC ACID 500 MG TABLET PO SCH (09:19)
--- NOTE | 2018-02-10 12:35 | P.DS ---
Admission Date: 02/09/18 Discharge Date: 02/10/18 Primary Care Provider: Shay Disposition: ROUTINE DISCHARGE Discharge Condition: GOOD Reason for Admission: UTI, altered mental status - Problems (1) UTI (urinary tract infection) Onset Date: 02/10/18 Current Visit: Yes Status: Acute Qualifiers: Urinary tract infection type: acute cystitis Hematuria presence: without hematuria Qualified Code(s): N30.00 - Acute cystitis without hematuria (2) CAD (coronary artery disease) Onset Date: 02/10/18 Current Visit: Yes Status: Acute Qualifiers: Coronary Disease-Associated Artery/Lesion type: [place] artery [place] vs. transplanted heart: [place] heart Associated angina: without angina Qualified Code(s): I25.10 - Atherosclerotic heart disease of [place] coronary artery without angina pectoris (3) Dementia Onset Date: 02/10/18 Current Visit: Yes Status: Acute Qualifiers: Dementia type: Alzheimer's disease Brief History of Present Illness: Patient is here for altered mental status. She was sent to the ER. Found to have a UTI. Had a negative CT of the head. Had an elevation of her troponins. Hospital Course: Patient admitted and started on fluids and antibiotics. She is much more alert an oriented. Will have her ambulate with PT. If doing better we can return her to [place] [facility] Vital Signs/Physical Exam: Temp Pulse Resp BP Pulse Ox 97.2 F 60 16 111/40 L 99 02/10/18 08:00 02/10/18 09:17 02/10/18 08:00 02/10/18 09:17 02/10/18 08:00 General: Alert, In no apparent distress HEENT: Atraumatic, PERRLA, EOMI Neck: Supple, JVD not distended Respiratory: Clear to auscultation bilaterally, Normal air movement Cardiovascular: Regular rate/rhythm, Normal S1 S2 Gastrointestinal: Normal bowel sounds, No tenderness Musculoskeletal: No tenderness Integumentary: No rashes Neurological: Normal speech, Normal tone, Normal affect Lymphatics: No axilla or inguinal lymphadenopathy Laboratory Data at Discharge: WBC 8.2 K/uL (4.3-10.9) D 02/10/18 03:33 Hgb 10.5 g/dL (12.0-15.0) L D 02/10/18 03:33 Hct 30.4 % (36.0-45.0) L D 02/10/18 03:33 Plt Count 109 K/uL (152-406) L D 02/10/18 03:33 PT 11.7 SECONDS (9.5-12.5) 02/08/18 22:55 INR 0.99 02/08/18 22:55 APTT 27.0 SECONDS (24.3-36.9) 02/08/18 22:55 Sodium 142 mmol/L (136-145) 02/10/18 03:33 Potassium 3.9 mmol/L (3.5-5.1) 02/10/18 03:33 BUN 29 mg/dL (7-18) H 02/10/18 03:33 Creatinine 1.20 mg/dL (0.55-1.3) 02/10/18 03:33 Glucose 140 mg/dL (74-106) H 02/10/18 03:33 Magnesium 2.1 mg/dL (1.8-2.4) 02/08/18 22:55 Total Bilirubin 0.4 mg/dL (0.2-1.0) 02/08/18 22:55 AST 24 U/L (15-37) 02/08/18 22:55 ALT 20 U/L (12-78) 02/08/18 22:55 Alkaline Phosphatase 68 U/L (45-117) 02/08/18 22:55 Troponin I 0.26 ng/mL (0.0-0.045) H 02/09/18 03:59 Lipase 136 U/L (73-393) 02/08/18 22:55 Home Medications: Ascorbate Calcium [Vitamin C] 500 mg PO DAILY 02/09/18 Aspirin Chewable [Aspirin Chewable*] 81 mg PO DAILY 02/09/18 Atorvastatin Calcium [Lipitor*] 10 mg PO BEDTIME 02/09/18 Cholecalciferol (Vitamin D3) [Vitamin D3] 2,000 unit PO DAILY 02/09/18 Clopidogrel Bisulfate [Plavix*] 75 mg PO DAILY 02/09/18 Divalproex [Depakote Sprinkle*] 125 mg PO TID 02/09/18 Donepezil HCl [Aricept] 23 mg PO BEDTIME 02/09/18 Furosemide [Lasix] 40 mg PO DAILY 02/09/18 Insulin Aspart [Novolog Flexpen] 100 unit SQ PRN 02/09/18 Levalbuterol Tartrate [Xopenex Hfa] 15 gm IH PRN 02/09/18 Lisinopril [Prinivil*] 5 mg PO BID 02/09/18 Melatonin 3 mg PO BEDTIME 02/09/18 Metoprolol Succinate 50 mg PO BEDTIME 02/09/18 Multivitamin with Minerals [Multivitamins with Minerals] 500 mg PO DAILY Nitroglycerin [Minitran] 1 each TD DAILY 02/09/18 [place]-3/Dha/Epa/Fish Oil [Fish Oil 500 mg Softgel] 500 mg PO DAILY 02/09/18 Potassium Chloride [K-Tab ER] 20 meq PO DAILY 02/09/18 Ranolazine [Ranexa] 1,000 mg PO DAILY 02/09/18 Levofloxacin [Levaquin] 500 mg PO DAILY 10 Days #10 tablet 02/10/18 New Medications: Levofloxacin [Levaquin] 500 mg PO DAILY 10 Days #10 tablet Diet: Regular Activity: Fall precautions Time spent managing pt's care (in minutes): 40
[2018-02-10] MEDS ORDERED: CEFTRIAXONE/SWI 1gm 1 GM/10 ML SYR IVP SCH (18:00)
== END 2018-02-10 18:12 | DRG 690 ==
LOC: ER 22:43 → ERHOLD 02-09 01:07 → 4TH 02-09 02:01
PROVIDERS: ADMIT Internal Medicine; ATTEND Internal Medicine
DX: N30.00 Acute cystitis without hematuria (principal); I25.10 Atherosclerotic heart disease of native coronary artery without angina pectoris; G30.9 Alzheimer's disease, unspecified; F02.80 Dementia in other diseases classified elsewhere, unspecified severity, without behavioral disturbance, psychotic disturbance, mood disturbance, and anxiety; R41.82 Altered mental status, unspecified; E11.9 Type 2 diabetes mellitus without complications; E78.5 Hyperlipidemia, unspecified; K21.9 Gastro-esophageal reflux disease without esophagitis; I10 Essential (primary) hypertension; J45.20 Mild intermittent asthma, uncomplicated; M62.81 Muscle weakness (generalized); R74.8 Abnormal levels of other serum enzymes; Z79.02 Long term (current) use of antithrombotics/antiplatelets; Z79.82 Long term (current) use of aspirin; Z79.4 Long term (current) use of insulin; Z86.73 Personal history of transient ischemic attack (TIA), and cerebral infarction without residual deficits; Z95.5 Presence of coronary angioplasty implant and graft; Z88.1 Allergy status to other antibiotic agents; Z88.5 Allergy status to narcotic agent
CPT/HCPCS: 36415; 51702; 70450; 71045; 80048; 80076; 80164; 81003; 82550; 82553; 82962; 83690; 83735; 83880; 84484; 85025; 85610; 85730; 87077; 87086; 87088; 87186; 93005; 94640; 96361; 96372; 96374; 97163; 99285; J0696; J1650; J7030

== ENCOUNTER 2018-03-16 17:40 | Inpatient (IN) | payer OTHER, MEDICARE ==
--- OUTSIDE RECORDS SUMMARY | 2018-03-16 17:43 | XMS REPORT ---
:1935 Author Organization [facility] Address [address] [place] [address] [address] [place] [address] Care Team Providers Name Role Phone DR MERISSA HENNING Unavailable Unavailable Problems This patient has no known problems. Allergies, Adverse Reactions, Alerts This patient has no known allergies or adverse reactions. Medications This patient has no known medications. Encounters Start End Encounter Admission Attending Care Care Encounter Date/Time Date/Time Type Type Clinicians Facility Department ID 2017-09-10 2017-10-04 Inpatient [facility] [id number] 21:32:00 16:21:00 MERISSA Results Test Description Test [...] mg/dL 8.3-9.5 U/S VENOUS DOPPLER MICHELLE LOW [id number] 17:13:19Bilateral lower extremity venous DopplerLocation code: [id number] HISTORY: M79.89: OTHER SPECIFIED SOFT TISSUE DISORDERS, [...] Reyez's cysts within the popliteal fossa bilaterally.B12 [id number] 06:45:00 Test Item Value Reference Range Comments VIT B12 (test code=A60) 213.0 pg/mL 180.0-914.0 [id number] 06:45:00 Test Item Value Reference Range Comments FOLATE (test code=A75) 33.8 ng/mL 3.1-17.5 LIPID [id number] 06:45:00 Test Item Value Reference Range Comments CHOLESTROL (test code=44A) 116 mg/dL 140-200 TRIGLYCERI (test code=42B) 111 mg/dL <=149 HDL (test code=83D) 60.0 mg/dL 40.0-60.0 LDL (test code=34B) 52 mg/dL <=99 CHL/HDL (test code=CHR) 1.9 0.0-3.4 THYROID PANEL/SCREEN (TSH)2017-09-11 06:31:00 Test Item Value Reference Range Comments TSH (test code=A57) 2.520 uIU/mL 0.358-3.740 [id number] 06:25:00 Test Item Value Reference Range Comments PREALBUMIN (test code=08E) 21 mg/dL 18-38 [id number] 06:13:00 Test Item Value Reference Range Comments Hb A1C % (test code=HBA) 6.7 % 4.2-6.3 [id number] 06:06:00 Test Item Value Reference Range Comments MAGNESIUM (test code=48A) 1.8 mg/dL 1.8-2.4 ALCOHOL BLOOD (ETOH)2017-09-10 19:23:00 Test Item Value Reference Range Comments ETOH (test code=HALC) ETHANOL The result is to be used only for medical purposes ALCOHOL (test code=56A) <10 mg/dL <=10 COMPREHENSIVE METABOLIC [id number] 19:22:00 Test Item Value Reference Range Comments [...] ALT (test code=31A) 16 IU/L <=78 LIVER [id number] 19:22:00 Test Item Value Reference Range Comments [...] <=42 ALT (test code=31A) 16 IU/L <=78 [id number] 19:22:00 Test Item Value Reference Range Comments ACETAMINPH (test code=94M) <2.0 ug/mL 10.0-30.0 [id number] 19:22:00 Test Item Value Reference Range Comments SALICYLATE (test code=94B) <1.7 mg/dL 2.8-20.0 CARDIAC [id number] 19:20:00 Test Item Value Reference Range Comments TROPONIN I (test code=A84) <0.015 ng/mL 0.000-0.045 CKMB (test code=A49) 1.3 ng/mL <=3.6 CPK (test code=32A) 44 IU/L 26-192 AMMONIA [id number] 19:15:00 Test Item Value Reference Range Comments [...] MORPH (test code=RBCMOR) NORMAL CT HEAD W/O [id number] 18:40:44Noncontrast CT of the brainLOCATION: R 16Clinical [...] vesseldisease.3. No evidence of intracranial hemorrhageDRUGS OF [id number] 18:34:00 Test Item Value Reference Range Comments [...] ng/mL Barbiturates 200 ng/mL Opiates 2000 ng/mL [id number] 18:27:00 Test Item Value Reference Range Comments [...] code=AUAM) NO NO XR CHEST 1 VIEW [id number] 17:33:50STUDY: Chest radiographHISTORY: Psychiatric treatment change.COMPARISON: NoneTECHNIQUE: Frontal viewof the chest.LOCATION: [id number]:Median sternotomy wires are noted.The cardiac silhouette is unremarkable. Faint bibasilar densities likelyreflect subsegmental atelectasis. Otherwise, there is no other focalconsolidation. There is no pleural effusion or pneumothorax.No acute osseous abnormalities are identified.IMPRESSION:1. Faint bibasilar densities likely reflecting subsegmental atelectasis.Otherwise, no radiographic evidence for acute pulmonary abnormality.
--- OUTSIDE RECORDS SUMMARY | 2018-03-16 17:43 | XMS REPORT | Clinical Summary ---
:1935 Author Organization [facility] Address [address] [place] [address] Care Team Providers Name Role Phone Shannon [...] [id number] Completed 10/21/2015 Results Not on fileafter 03/15/2017 Insurance Payer Benefit Plan / Group Subscriber ID Type Phone Address MEDICARE MEDICARE PART A AND B xxxxxxxxxx Medicare [place], [place] AARP AARP SUPPLEMENT xxxxxxxxxxx Commercial [phone] [place] [id number]
[2018-03-16] MEDS ORDERED: NA CHLORIDE 0.9% 2,000 ML ONE (17:55)
[2018-03-16] MEDS ORDERED: NA CHLORIDE 0.9% 1,000 ML ONE (18:09)
[2018-03-16 18:24] LABS: Urine Blood NEGATIVE (NEG); Urine Glucose NEGATIVE (NEG); Urine Protein NEGATIVE (NEG); Urine Specific Gravity 1.025 (1.005-1.030); Urine pH 5.5 (5.0-7.0)
[2018-03-16] MEDS ORDERED: CEFEPIME/SWI 2gm 2 GM/20 ML SYR IV SCH (18:30)
[2018-03-16] MEDS ORDERED: VANCOMYCIN 1 GM/250 ML BAG ONE (18:30)
[2018-03-16] MEDS ORDERED: FAMOTIDINE 20 MG/2 ML VIAL IV ONE (18:31)
--- NOTE | 2018-03-16 18:36 | RAD REPORT ---
EXAM DESCRIPTION: [place] Single View03/16/2018 6:14 pm CLINICAL HISTORY: Chest pain COMPARISON: January 2018 FINDINGS: The lungs appear clear of acute infiltrate. The heart is mildly enlarged. Postsurgical changes involve the chest. IMPRESSION: No acute abnormalities displayed
[2018-03-16 18:37] LABS: Absolute Lymphocytes (CBC) 0.6 K/uL (0.7-4.9); Absolute Monocytes 2.1 K/uL (0.1-1.3); Absolute Neutrophil 32.6 K/uL (1.8-8.0); Eosinophils % 0.3 % (0-4.4); Hematocrit 42.9 % (36.0-45.0); Lymphocytes % 1.6 % (15.3-44.8); MCH 31.8 pg (27.0-35.0); MCV 99.8 fL (80-100); Monocytes % 5.9 % (3.3-12.3); RBC Red Blood Cell Count 4.29 M/uL (3.86-4.86)
[2018-03-16 18:43] LABS: Arterial Blood Carboxyhemoglob 0.7 % (0-1.5); Blood Gas Oxyhemoglobin 88.6 % (94-97); Blood O2 Saturation 90.1 % (92-98.5)
[2018-03-16 18:48] LABS: Albumin 2.9 g/dL (3.4-5.0); Bilirubin Direct 0.3 mg/dL (0-0.2); Bilirubin Total 0.7 mg/dL (0.2-1.0); C-Reactive Protein 29.7 mg/L (<3.00); CKMB Creatine Kinase MB 11.1 ng/mL (0.3-3.6); Magnesium 2.6 mg/dL (1.8-2.4); Potassium 5.1 mmol/L (3.5-5.1); Protein, Total 6.3 g/dL (6.4-8.2)
--- NOTE | 2018-03-16 18:56 | ER ---
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 Pt responsive to pain. Just discharged from the hospital for failure to thrive. Transition of care: patient was received from another setting of care ([facility]. Onset of symptoms was March 16, 2018. Risk Assessment: Do you want to hurt yourself or someone else? Patient reports no desire to harm self or others. Initial Sepsis Screen: Does the patient meet any 2 criteria? RR > 20 per min. Systolic BP < 90 mmHg. Altered Mental Status. HR > 90 bpm. Yes Does the patient have a suspected source of infection? No. Patient's initial sepsis screen is negative. Care prior to arrival: Medication(s) given: Normal saline infusion, 200 cc IV initiated. 22 GA, in the right forearm, Glucose check: 405. 17:43 Method Of Arrival: EMS: [facility] 17:43 Acuity: SPENSER 2 jl7 Triage Assessment: 18:25 General: Appears in no apparent distress. uncomfortable, Behavior is unresponsive. jl7 Pain: Unable to use pain scale. Patient is unresponsive. Neuro: Level of Consciousness is unresponsive. 18:39 Cardiovascular: Heart tones present Patient's skin is warm and dry. Respiratory: Airway jl7 is patent Respiratory effort is even, unlabored, Respiratory pattern is Kussmaul. Derm: Bruising that is in various stages of healing to bilateral lower extremities.. Historical: - Allergies: 17:50 Codeine; jl7 17:50 Levaquin; jl7 - Home Meds: 18:25 Aricept 23 mg Oral tab nightly [Active]; aspirin 81 mg Oral chew 1 tab once daily jl7 [Active]; atorvastatin 10 mg Oral tab 1 tab nightly [Active]; Depakote Sprinkles 125 mg Oral cpSP 3 caps 3 times per day [Active]; Fish Oil 500 mg Oral cap 2 cap daily [Active]; Lasix 40 mg Oral tab 1 tab once daily [Active]; lisinopril 5 mg Oral tab twice a day [Active]; megestrol 400 mg/10 mL (40 mg/mL) Oral susp 20 mL once daily [Active]; melatonin 3 mg Oral tab nightly [Active]; metoprolol tartrate 50 mg Oral tab nightly [Active]; multivitamin with minerals Oral tab daily [Active]; nitroglycerin 0.4 mg/hr Topical pt24 1 patch once daily [Active]; Novolog Flexpen 100 unit/mL subcutaneous inpn per sliding scale [Active]; Plavix 75 mg Oral tab 1 tab once daily [Active]; potassium chloride 20 mEq Oral TbER 2 tab once daily [Active]; Ranexa 500 mg Oral Tb12 1 tab 2 times per day [Active]; Vitamin C 500 mg Oral tab twice a day [Active]; Vitamin D3 2,000 unit Oral cap daily [Active]; Xopenex Inhl 2 puff every 4 hours [Active]; - PMHx: 17:50 Alzheimers; DYSPHAGIA; Dementia; Diabetes - IDDM; jl7 18:25 Hyperlipidemia; Hypertension; Asthma; GERD; TIA; CAD; Angina; jl7 - Immunization history:: Adult Immunizations up to date. - Family history:: not pertinent. - Ebola Screening: : No symptoms or risks identified at this time. - Social history:: Smoking status: unknown. Screenin:29 Abuse screen: unable to assess. Tuberculosis screening: No symptoms or risk factors jl7 identified. Fall Risk IV access (20 points). Total Watson Fall Scale indicates High Risk Score (45 or more points). Fall prevention measures have been instituted. Side Rails Up X 2 Placed Close to Nursing Station Frequent Obs/Assessments Occuring As available patient and family educated on Fall Prevention Program and Strategies. 20:13 Nutritional screening: No deficits noted. jd3 Assessment: 18:36 Reassessment: RT at bedside to draw ABG, radiology at bedside for repeat CXR. iw 19:05 General: Appears ill, Behavior is listless. Pain: Unable to use pain scale. pt did not jd3 answer question of pain. Neuro: Level of Consciousness is listless, responds to voice by shaking head yes or no.. Oriented to none. Cardiovascular: Heart tones S1 S2 present. Respiratory: Airway is patent Respiratory effort is even, unlabored, Respiratory pattern is regular, symmetrical, Breath sounds with wheezes bilaterally. GI: Abdomen is flat, Bowel sounds present X 4 quads. Abd is soft. : Jamison in place Urine is dark carol urine. EENT: No signs and/or symptoms were reported regarding the EENT system. Derm: Skin is intact, Skin is clammy, Skin is pale, Skin temperature is cool. 20:00 Reassessment: Patient appears in no apparent distress at this time. No changes from jd3 previously documented assessment. 21:00 Reassessment: Patient appears in no apparent distress at this time. No changes from jd3 previously documented assessment. 21:30 Reassessment: Patient appears in no apparent distress at this time. No changes from jd3 previously documented assessment. Vital Signs: 17:55 BP 88 / 62; Pulse 120; Resp 16 S; Pulse Ox 100% on R/A; jl7 18:38 BP 122 / 53; Pulse 118; Resp 27 S; Temp 96.9(C); Pulse Ox 100% on R/A; jl7 18:45 Weight 61 kg (R); aa5 19:26 BP 136 / 71; Pulse 118; Resp 19; Temp 95.3(C); Pulse Ox 100% ; cc 19:51 BP 127 / 66; Pulse 118; Resp 32; Temp 95.1(C); Pulse Ox 99% on R/A; Pain 0/10; tl1 20:27 BP 106 / 84; Pulse 120; Resp 32; Temp 95.2(C); Pulse Ox 97% on R/A; Pain 0/10; tl1 20:50 BP 134 / 78; Pulse 31; tl1 20:55 BP 134 / 78; Pulse 121; Resp 29; Temp 95.6(C); Pulse Ox 97% on R/A; Pain 0/10; tl1 21:19 BP 120 / 79; Pulse 122; Resp 36; Temp 96(C); Pulse Ox 95% on R/A; Pain 0/10; tl1 ED Course: 17:43 Patient arrived in ED. [facility] 17:45 Initial lab(s) drawn, by mt, sent to lab. First set of blood cultures drawn by ED 7 staff, Urine collected: Jamison catheter specimen, cloudy, tea colored. 17:49 Triage completed. jl7 17:52 [facility] snw 17:52 Cayden Khan MD is Attending Physician. snw 17:55 Arm band placed on right wrist. jl7 18:05 Second set of blood cultures drawn by physician. jl7 18:13 X-ray completed. Portable x-ray completed in exam room. Patient tolerated procedure la2 well. 18:14 Chest Single View XRAY In Process Unspecified. EDMS 18:29 Patient has correct armband on for positive identification. Placed in gown. Bed in low jl7 position. Call light in reach. Side rails up X 1. natural sciences professor on. Pulse ox on. NIBP on. Warm blanket given. 18:29 Assisted provider with central line placement. Set up central line tray. Triple lumen jl7 line placed in right subclavian. Line placed by Cayden Khan MD Placement verified by CXR, blood return, Dressed with Tegaderm, Blood was collected. Patient tolerated well. Before procedure, did Practitioner(s) obtain informed consent? No. Patient \T\ family education about procedure, CLABSI prevention and S/S of infection? Yes. Time-out/Briefing performed prior to start of procedure? Yes. Was handwashing/sanitizing done immediately prior to procedure? Yes. Was patient positioned to in a way to prevent air embolism? Yes. Was procedure site sterilized? Yes, with chlorhexidine. Was the site allowed to dry? Yes. Was local anesthetic and/or sedation utilized? No. During the procedure, did the Practitioner(s) maintain a sterile field? Yes. Were unused ports clamped during insertion? Yes. Was a 2nd qualified MD obtained after 3 unsuccessful insertion attempts? No. Was blood aspirated from each lumen? Yes. After the procedure, did the Practitioner(s) clean the site and apply a sterile dressing? Yes. 18:40 XRAY Chest (1 view) In Process Unspecified. EDMS 18:53 Gomez Day MD is Hospitalizing Provider. zackery 19:[address] via stretcher. cw1 19:14 CT Traumagram (Head C Spine CAP wo con) In Process Unspecified. EDMS 19:26 Tony Walker, RN is Primary Nurse. jd3 19:28 Nurse addressing temp. cc 20:57 Patient admitted, IV remains in place. tl1 Administered Medications: 18:00 Drug: NS 0.9% (30 ml/kg) 30 ml/kg Route: IV; Rate: bolus; Site: left forearm; iw 18:20 CANCELLED (Duplicate Order): NS 0.9% (30 ml/kg) 30 ml/kg IV at bolus once; Sepsis iw Protocol 18:35 Drug: Pepcid 20 mg Route: IVP; Site: left forearm; iw 19:27 Follow up: Response: No adverse reaction jd3 18:45 Drug: Cefepime 2 grams Route: IVPB; Rate: 200 ml/hr; Infused Over: 30 mins; Site: left iw forearm; 18:55 Follow up: IV Status: Completed infusion iw 18:50 Drug: vancoMYCIN 1 grams Route: IVPB; Infused Over: 2 hrs; Site: right jugular; iw 20:31 Follow up: IV Status: Completed infusion tl1 19:00 Drug: NS 0.9% (30 ml/kg) 30 ml/kg {Note: last bag of ns infusing upon arrivel..} Route: jd3 IV; Rate: bolus; Site: right jugular; 19:46 Follow up: Response: No adverse reaction; IV Status: Completed infusion; IV Intake: jd3 1830ml 19:41 Drug: Insulin Drip - (Insulin Regular Human 100 units, NS 0.9% 100 ml) {Co-Signature: tl1 bb (Penny Angel RN).} Route: IV; Rate: 4 units/hr; Site: right subclavian; 20:31 Follow up: IV Status: Infusion continued upon admission tl1 Point of Care Testing: Blood Glucose: 17:55 Blood Glucose: 369 mg/dL; jl7 20:26 Blood Glucose: 281 mg/dL; tl1 Ranges: Intake: 19:46 IV: 1830ml; Total: 1830ml. jd3 21:21 IV: 2250ml (IV Fluid); Total: 4080ml. tl1 Output: 21:19 Urine: 500ml (Jamison); Total: 500ml. tl1 Outcome: 18:55 Decision to Hospitalize by Provider. zackery 20:56 Admitted to ICU accompanied by nurse, via stretcher, on monitor, with chart, Report tl1 called to Donnalyn RN 20:56 critical 20:56 Instructed on the need for admit. 21:31 Patient left the ED. jd3 Signatures: Dispatcher [employer] Cayden Cavazos MD MD cha Therrien, Shelly, DISTRICT COURT JUDGE-C DISTRICT COURT JUDGE-Csnw Sole Catalan, RN RN Geovanna Hernández RN RN aa5 Joellen Thapa 1 Veronica Skaggs cc Faith Cortes RN RN tl1 Lucero Spencer RN RN jl7 Leidy Granados la2 Tony Walker RN RN jd3 Penny Angel RN bb Corrections: (The following items were deleted from the chart) 18:51 17:43 Initial Sepsis Screen: Does the patient meet any 2 criteria? No. Patient's jl7 initial sepsis screen is negative. Does the patient have a suspected source of infection? No. Patient's initial sepsis screen is negative. jl7 18:53 18:00 86.18 kg; aa5
--- NOTE | 2018-03-16 18:56 | EDPHYS ---
Physician Documentation [facility] Name: Lizzy Peralta Age: 82 yrs Sex: Female : 1935 Arrival Date: 03/16/2018 Time: 17:43 Bed 3 Private MD: ED Physician Cayden Khan HPI: 03/16 18:12 This 82 yrs old Female presents to ER via EMS with complaints of High Blood zackery Sugar. 18:12 This 82 yrs old Female presents to ER via EMS with complaints of High Blood zackery Sugar. 18:12 The patient or guardian reports altered mental status, generalized weakness, zackery hyperglycemia. Onset: The symptoms/episode began/occurred 3 day(s) ago. Associated signs and symptoms: Pertinent positives: anorexia, decreased urine output, nausea, Current symptoms: In the emergency department the patient's symptoms are unchanged from the initial presentation. The patient has experienced similar episodes in the past, several times. Historical: - Allergies: 17:50 Codeine; jl7 17:50 Levaquin; - Home Meds: 18:25 Aricept 23 mg Oral tab nightly [Active]; aspirin 81 mg Oral chew 1 tab once daily jl7 [Active]; atorvastatin 10 mg Oral tab 1 tab nightly [Active]; Depakote Sprinkles 125 mg Oral cpSP 3 caps 3 times per day [Active]; Fish Oil 500 mg Oral cap 2 cap daily [Active]; Lasix 40 mg Oral tab 1 tab once daily [Active]; lisinopril 5 mg Oral tab twice a day [Active]; megestrol 400 mg/10 mL (40 mg/mL) Oral susp 20 mL once daily [Active]; melatonin 3 mg Oral tab nightly [Active]; metoprolol tartrate 50 mg Oral tab nightly [Active]; multivitamin with minerals Oral tab daily [Active]; nitroglycerin 0.4 mg/hr Topical pt24 1 patch once daily [Active]; Novolog Flexpen 100 unit/mL subcutaneous inpn per sliding scale [Active]; Plavix 75 mg Oral tab 1 tab once daily [Active]; potassium chloride 20 mEq Oral TbER 2 tab once daily [Active]; Ranexa 500 mg Oral Tb12 1 tab 2 times per day [Active]; Vitamin C 500 mg Oral tab twice a day [Active]; Vitamin D3 2,000 unit Oral cap daily [Active]; Xopenex Inhl 2 puff every 4 hours [Active]; - PMHx: 17:50 Alzheimers; DYSPHAGIA; Dementia; Diabetes - IDDM; jl7 18:25 Hyperlipidemia; Hypertension; Asthma; GERD; TIA; CAD; Angina; jl7 - Immunization history:: Adult Immunizations up to date. - Family history:: not pertinent. - Ebola Screening: : No symptoms or risks identified at this time. - Social history:: Smoking status: unknown. ROS: 18:12 Back: Negative for injury and pain. zackery 18:12 Constitutional: Positive for fatigue, fever, malaise, poor PO intake. 18:12 ENT: Positive for 18:12 Cardiovascular: Positive for palpitations. 18:12 Abdomen/GI: Positive for nausea and vomiting. 18:12 Neuro: Positive for altered mental status, weakness. 18:12 Unable to obtain ROS due to altered mental status, baseline dementia, obtunded state. Exam: 18:12 Back: No spinal tenderness. No costovertebral tenderness. Full range of motion. zackery 18:12 Constitutional: The patient appears lethargic, in obvious distress, moderately distressed. 18:12 ENT: Mouth: Lips: dry, cracked, Oral mucosa: dry, Gums: reddened, Tongue: displays fissures. 18:12 Neck: External neck: no acute changes, Trachea: is midline with no obvious abnormalities, no acute changes. 18:12 Cardiovascular: Rate: tachycardic, Rhythm: regular, Pulses: Pulses are 2+ in bilateral radial, brachial, femoral, popliteal, posterior tibial and and dorsalis pedis arteries.. 18:12 Respiratory: mild respiratory distress is noted, moderate respiratory distress is noted, Respirations: labored breathing, that is mild, Breath sounds: decreased breath sounds, rhonchi, that are mild. 18:12 Abdomen/GI: Inspection: abdomen appears normal, Bowel sounds: diminished, Palpation: Liver: no appreciated palpable abnormalities, Hernia: not appreciated. 18:12 Musculoskeletal/extremity: ROM: limited passive range of motion, DVT Exam: no pain, no swelling, no tenderness, negative Homans' sign noted on exam, no erythema, no increased warmth, bluish discoloration. Vital Signs: 17:55 BP 88 / 62; Pulse 120; Resp 16 S; Pulse Ox 100% on R/A; jl7 18:38 BP 122 / 53; Pulse 118; Resp 27 S; Temp 96.9(C); Pulse Ox 100% on R/A; jl7 18:45 Weight 61 kg (R); aa5 19:26 BP 136 / 71; Pulse 118; Resp 19; Temp 95.3(C); Pulse Ox 100% ; cc 19:51 BP 127 / 66; Pulse 118; Resp 32; Temp 95.1(C); Pulse Ox 99% on R/A; Pain 0/10; tl1 20:27 BP 106 / 84; Pulse 120; Resp 32; Temp 95.2(C); Pulse Ox 97% on R/A; Pain 0/10; tl1 20:50 BP 134 / 78; Pulse 31; tl1 20:55 BP 134 / 78; Pulse 121; Resp 29; Temp 95.6(C); Pulse Ox 97% on R/A; Pain 0/10; tl1 21:19 BP 120 / 79; Pulse 122; Resp 36; Temp 96(C); Pulse Ox 95% on R/A; Pain 0/10; tl1 Procedures: 17:58 Central Line: the site was prepped with in sterile fashion, a triple lumen catheter was snw inserted, in the right IJ, in 1 attempts. placement was verified, by CXR, by blood return, the site was dressed with Tegaderm, using sterile technique, per Dr. Bill VO. MDM: 17:52 Patient medically screened. snw 18:19 Data reviewed: vital signs, nurses notes, lab test result(s), EKG, radiologic studies, zackery CT scan, plain films. 03/16 17:54 Order name: Amylase, Serum [facility] 03/16 17:54 Order name: Basic Metabolic Panel [facility] 03/16 17:54 Order name: Blood Culture Adult (2) [facility] 03/16 17:54 Order name: C-Reactive Protein [facility] 03/16 17:54 Order name: CBC with Diff [facility] 03/16 17:54 Order name: Ckmb; Complete Time: 18:51 [facility] 03/16 17:54 Order name: CPK; Complete Time: 18:51 [facility] 03/16 17:54 Order name: Lactate; Complete Time: 18:51 [facility] 03/16 17:54 Order name: LFT's; Complete Time: 18:51 [facility] 03/16 17:54 Order name: Lipase; Complete Time: 18:51 [facility] 03/16 17:54 Order name: Procalcitonin; Complete Time: 19:08 [facility] 03/16 17:54 Order name: Protime (+inr); Complete Time: 20:14 [facility] 03/16 17:54 Order name: Ptt, Activated; Complete Time: 20:14 [facility] 03/16 17:54 Order name: Sed Rate [facility] 03/16 17:54 Order name: Troponin (emerg Dept Use Only); Complete Time: 18:51 [facility] 03/16 17:54 Order name: Magnesium; Complete Time: 18:51 [facility] 03/16 17:54 Order name: NT PRO-BNP; Complete Time: 18:51 [facility] 03/16 17:54 Order name: ABG; Complete Time: 18:51 [facility] 03/16 17:54 Order name: Amylase Level; Complete Time: 18:51 [facility] 03/16 17:54 Order name: Basic Metabolic Panel; Complete Time: 18:51 [facility] 03/16 17:54 Order name: Blood Culture [facility] 03/16 17:54 Order name: C-Reactive Protein; Complete Time: 18:51 [facility] 03/16 17:54 Order name: CBC with Automated Diff [facility] 03/16 17:56 Order name: Urine Microscopic Only [facility] 03/16 17:56 Order name: Urine Culture [facility] 03/16 17:56 Order name: T\T\S [facility] 03/16 17:54 Order name: Chest Single View XRAY; Complete Time: 18:51 [facility] 03/16 17:57 Order name: Urine Microscopic Only [facility] 03/16 18:21 Order name: Urine Dipstick--Ancillary (enter results); Complete Time: 18:32 bd 03/16 18:28 Order name: XRAY Chest (1 view); Complete Time: 20:14 [facility] 03/16 18:33 Order name: CT Traumagram (Head C Spine CAP wo con); Complete Time: 20:14 zackery 03/16 18:34 Order name: Depakote; Complete Time: 19:08 zackery 03/16 18:42 Order name: Urine Culture aa5 03/16 18:42 Order name: Urine Culture EDMS 03/16 20:06 Order name: Lactate jd3 08/05 20:20 Order name: Manual Differential EDMS 03/16 20:46 Order name: Troponin I EDMS 03/16 21:01 Order name: Lactate EDMS 03/16 17:54 Order name: EKG; Complete Time: 17:55 jl7 03/16 17:56 Order name: Accucheck; Complete Time: 18:09 snw 03/16 17:56 Order name: Cardiac monitoring; Complete Time: 18:09 snw 03/16 17:56 Order name: EKG - Nurse/Tech; Complete Time: 18:09 snw 03/16 17:56 Order name: IV Saline Lock - Large Bore; Complete Time: 18:09 snw 03/16 17:56 Order name: Labs collected and sent; Complete Time: 18:09 snw 03/16 17:56 Order name: O2 Per Protocol; Complete Time: 18:09 snw 03/16 17:56 Order name: O2 Sat Monitoring; Complete Time: 18:09 snw 03/16 17:56 Order name: Urine Dipstick-Ancillary (obtain specimen); Complete Time: 18:38 snw 03/16 17:58 Order name: Jamison; Complete Time: 18:23 snw 03/16 18:11 Order name: Central Line Kit; Complete Time: 18:20 zackery Administered Medications: 18:00 Drug: NS 0.9% (30 ml/kg) 30 ml/kg Route: IV; Rate: bolus; Site: left forearm; iw 18:20 CANCELLED (Duplicate Order): NS 0.9% (30 ml/kg) 30 ml/kg IV at bolus once; Sepsis iw Protocol 18:35 Drug: Pepcid 20 mg Route: IVP; Site: left forearm; iw 19:27 Follow up: Response: No adverse reaction jd3 18:45 Drug: Cefepime 2 grams Route: IVPB; Rate: 200 ml/hr; Infused Over: 30 mins; Site: left iw forearm; 18:55 Follow up: IV Status: Completed infusion iw 18:50 Drug: vancoMYCIN 1 grams Route: IVPB; Infused Over: 2 hrs; Site: right jugular; iw 20:31 Follow up: IV Status: Completed infusion tl1 19:00 Drug: NS 0.9% (30 ml/kg) 30 ml/kg {Note: last bag of ns infusing upon arrivel..} Route: jd3 IV; Rate: bolus; Site: right jugular; 19:46 Follow up: Response: No adverse reaction; IV Status: Completed infusion; IV Intake: jd3 1830ml 19:41 Drug: Insulin Drip - (Insulin Regular Human 100 units, NS 0.9% 100 ml) {Co-Signature: tl1 sejal (Penny Angel RN).} Route: IV; Rate: 4 units/hr; Site: right subclavian; 20:31 Follow up: IV Status: Infusion continued upon admission tl1 Point of Care Testing: Blood Glucose: 17:55 Blood Glucose: 369 mg/dL; jl7 20:26 Blood Glucose: 281 mg/dL; tl1 Ranges: Critical Glucose Levels:Adult <50 mg/dl or >400 mg/dl <40 mg/dl or >180 mg/dl Disposition: 18:19 Co-signature as Attending Physician, Cayden Khan MD I agree with the assessment and zackery plan of care. Disposition: 03/16/18 18:55 Hospitalization ordered by Gomez Day for Inpatient Admission. 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 - Bed requested for Intensive Care Unit. - Status is Inpatient Admission. jd3 - Condition is Critical. - Problem is new. - Symptoms are unchanged. UTI on Admission? No Signatures: Dispatcher [employer] EDMS Ira Kaiser 2 Cayden Khan MD MD cha Therrien, Shelly, GEOMAGNETICIAN-C GEOMAGNETICIAN-Csnw Sole Catalan, RN MARK iw Faith Cortes RN RN tl1 Lucero Spencer RN RN jl7 Tony Walker RN RN jd3 Penny Angel RN bb Corrections: (The following items were deleted from the chart) 18:00 17:57 CBC+H.LAB.BRZ ordered. EDMS EDMS 18:00 17:57 LACTATE+C.LAB.BRZ ordered. EDMS EDMS 18:00 17:57 Procalcitonin+C.LAB.BRZ ordered. EDMS EDMS 18:00 17:57 PROTIME (+INR)+COAG.LAB.BRZ ordered. EDMS EDMS 18:00 17:57 PTT, ACTIVATED+COAG.LAB.BRZ ordered. EDMS EDMS 18:00 17:57 WESTERGREN SEDRATE+H.LAB.BRZ ordered. EDMS EDMS 18:00 17:57 TROPONIN (EMERG DEPT USE ONLY)+C.LAB.BRZ ordered. EDMS EDMS 18:01 17:57 AMYLASE, SERUM+C.LAB.BRZ ordered. EDMS EDMS 18:01 17:57 BASIC METABOLIC PANEL+C.LAB.BRZ ordered. EDMS EDMS 18:01 17:57 BLOOD CULTURE*+BA.LAB.BRZ ordered. EDMS EDMS 18:01 17:57 C-REACTIVE PROTEIN+C.LAB.BRZ ordered. EDMS EDMS 18:01 17:57 CKMB+C.LAB.BRZ ordered. EDMS EDMS 18:01 17:57 CREATINE PHOSPHOKINASE+C.LAB.BRZ ordered. EDMS EDMS 18:01 17:57 HEPATIC FUNCTION+C.LAB.BRZ ordered. EDMS EDMS 18:01 17:57 LIPASE+C.LAB.BRZ ordered. EDMS EDMS 18:07 17:57 Head Brain Wo Cont+CT.RAD.BRZ ordered. EDMS EDMS 18:10 17:54 Accucheck ordered. [facility] 18:10 17:54 IV Saline Lock ordered. [facility] 18:11 17:54 Cardiac monitoring ordered. [facility] 18:11 17:54 EKG - Nurse/Tech ordered. [facility] 18:11 17:54 IV Saline Lock - Large Bore ordered. [facility] 18:11 17:54 Labs collected and sent ordered. [facility] 18:11 17:54 Oxygen Per Protocol ordered. [facility] iw 18:12 17:54 O2 Sat Monitoring ordered. [facility] 18:12 17:54 Urine Dipstick-Ancillary ordered. [facility] 18:14 17:57 Chest Single View+RAD.RAD.BRZ ordered. EDMS EDMS 18:20 17:54 NS 0.9% (30 ml/kg) 30 ml/kg IV at bolus once; Sepsis Protocol ordered. [facility] 19:09 17:55 Head Brain Wo Cont+CT.RAD.BRZ ordered. EDMS EDMS 19:25 18:55 Hospitalization Ordered by Gomez Day MD for Inpatient Admission. 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 Bed requested for Intensive Care Unit. Status is Inpatient Admission. Condition is Critical. Problem is new. Symptoms are unchanged. UTI on Admission? No. zackery 20:37 19:25 03/16/2018 18:55 Hospitalization Ordered by Gomez Day MD for Inpatient rg2 Admission. 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 Bed requested for Intensive Care Unit. Status is Inpatient Admission. Condition is Critical. Problem is new. Symptoms are unchanged. UTI on Admission? No. zackery 21:31 20:37 03/16/2018 18:55 Hospitalization Ordered by Gomez Day MD for Inpatient jd3 Admission. 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 Bed requested for Intensive Care Unit. Status is Inpatient Admission. Condition is Critical. Problem is new. Symptoms are unchanged. UTI on Admission? No. rg2
[2018-03-16] MEDS ORDERED: INSULIN -REGULAR HUMAN 100 UNIT in NA CHLORIDE 0.9% 100 ML IV SCH ×2 (19:00→19:30)
[2018-03-16] MEDS ORDERED: ONDANSETRON 4 MG/2 ML VIAL IV PRN (19:17)
[2018-03-16] MEDS ORDERED: ACETAMINOPHEN 500 MG TAB PO PRN (19:17)
[2018-03-16 19:18] LABS: Protime INR 1.07
[2018-03-16] MEDS ORDERED: GLUCAGON 1 MG/VIAL IM PRN (19:18)
[2018-03-16] MEDS ORDERED: D50W 25 GM/50 ML SYRINGE IV PRN (19:18)
--- NOTE | 2018-03-16 19:48 | RAD REPORT ---
EXAM DESCRIPTION: CT - Head C Spine Cap Wo Con - 03/16/2018 7:13 pm CLINICAL HISTORY: Head and neck pain. Chest and abdominal pain. Diminished responsiveness. TECHNIQUE: Computed axial tomography of the head and cervical spine was obtained. Coronal and sagitt al reconstruction was performed Computed axial tomography of the chest, abdomen and pelvis was obtained. Contrast was not requested. All CT scans are performed using dose optimization technique as appropriate and may include automated exposure control or mA/KV adjustment according to patient size. COMPARISON: June 2017 CT head and cervical spine FINDINGS: The evaluation of the mediastinum, sharri, vessels, solid organs and bowel is limited secondary to lack of contrast administration. Marked dilatation of the ventricles is unchanged. Mild to moderate low-density areas within periventr icular, deep and subcortical white matter is stable. Cortical atrophy is present. An intracranial ble ed is not seen. Fluid within the sinuses/mastoids is not noted. Cervical fracture is not seen. No dislocation is noted. Spondylosis of the cervical spine is unchange d. 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 Mild anterior subluxation of C3 on C4 is unchang ed. No fracture or dislocation is noted. A mediastinal hematoma is not seen. A pleural effusion is not present. The ascending aorta has an AP diameter of 3.6 centimeters. A 3.1 centimeter right breast mass is present. The lungs are generally c lear. The gallbladder has been removed The liver, spleen, pancreas, adrenals and kidneys demonstrate no acute abnormality. A Jamison catheter is present within the bladder. The rectum is distended with stool measuring 8.7 centimeters. There is no evidence of diverticulitis. Postsurgical changes involve the lumbar spine. A 3 x 2 centimeter fluid collection is present within the subcutaneous tissues of the right lateral h ip. Mild anterior subluxation of L2 on L3 is seen. IMPRESSION: Marked dilatation of the ventricles is unchanged from prior exams presumably related to white matter atrophy. Normal pressure hydrocephalus could also have this appearance and should be cor related clinically A cervical fracture is not seen 3.1 centimeter right breast/chest wall mass. Ultrasound is recommended. Rectum is distended with stool 3 x 2 centimeter fluid collection within the subcutaneous tissues of the right lateral hip may repres ent a chronic hematoma/seroma
--- NOTE | 2018-03-16 19:50 | RAD REPORT ---
EXAM DESCRIPTION: Odiliat Single View03/16/2018 6:44 pm CLINICAL HISTORY: Device placement/central line placement FINDINGS: A central venous line has its tip in the superior vena cava. A pneumothorax is not seen The lungs appear clear of acute infiltrate. The heart is normal size post surgical changes involve t he chest IMPRESSION: Central venous line with its tip in the superior vena cava without pneumothorax
[2018-03-16 20:19] LABS: Blood Morphology Comment NOT SEEN (NOT SEEN); Platelet Estimate ADEQ
[2018-03-16] MEDS ORDERED: NA CHLORIDE 0.9% 0 ML ONE (21:09)
[2018-03-16] MEDS: NA CHLORIDE 0.9% 1,000 ML IV SCH (21:40)
[2018-03-16] MEDS: FAMOTIDINE 20 MG/2 ML VIAL IV SCH (22:39)
[2018-03-16] MEDS ORDERED: D5 0.45 NS 1,000 ML IV SCH (23:00)
[2018-03-16] MEDS: D5 0.45 NS 1,000 ML IV SCH (23:19)
[2018-03-17 00:55] LABS: BUN Blood Urea Nitrogen 63 mg/dL (7-18); Bicarbonate 16 mmol/L (21-32); Glucose Level 189 mg/dL (74-106); Potassium 4.5 mmol/L (3.5-5.1); Sodium Level 147 mmol/L (136-145)
[2018-03-17 03:03] LABS: Urine Appearance CLOUDY; Urine Blood NEGATIVE (NEG); Urine Color DK YELLOW; Urine Glucose NEGATIVE (NEG); Urine Protein NEGATIVE (NEG)
[2018-03-17] MEDS: NA CHLORIDE 0.9% 1,000 ML IV SCH ×2 (04:00→07:40)
[2018-03-17 04:07] LABS: Urine Bilirubin NEGATIVE (NEG)
[2018-03-17 04:35] LABS: Calcium Oxalate Crystals- Ur FEW (NONE SEEN); Urine Bacteria <20 /HPF (<20); Urine Coarse Granular Casts 0-5 /LPF (NONE SEEN); Urine Culture Reflex Order NOT NEEDED; Urine RBC NONE SEEN /HPF (NONE SEEN)
[2018-03-17] MEDS ORDERED: NOREPINEPHRINE 4 MG in D5W 250 ML IV PRN (05:20)
[2018-03-17] MEDS ORDERED: RSI MEDICATION KIT IV ONE (05:29)
[2018-03-17] MEDS ORDERED: NOREPINEPHRINE 4mg/D5W 250mL 4 MG/250 ML BAG IV ONE (05:29)
[2018-03-17 05:53] LABS: Absolute Lymphocytes (CBC) 1.1 K/uL (0.7-4.9); Absolute Monocytes 1.9 K/uL (0.1-1.3); Absolute Neutrophil 32.8 K/uL (1.8-8.0); Basophils % 0.2 % (0-1.3); Hematocrit 39.6 % (36.0-45.0); Lymphocytes % 3.2 % (15.3-44.8); MCH 32.6 pg (27.0-35.0); MCV 97.8 fL (80-100); Monocytes % 5.2 % (3.3-12.3); RBC Red Blood Cell Count 4.05 M/uL (3.86-4.86)
[2018-03-17 05:55] LABS: Arterial Blood Carboxyhemoglob 0.9 % (0-1.5); Blood Gas Oxyhemoglobin 79.4 % (94-97); Blood O2 Saturation 80.6 % (92-98.5)
[2018-03-17] MEDS ORDERED: SOD POLYSTYREN SUL 15 GM/60 ML UCUP PO ONE (06:00)
[2018-03-17] MEDS ORDERED: CALCIUM GLUC 10% INJ 4.65 MEQ in NA CHLORIDE 0.9% 100 ML IV ONE (06:00)
[2018-03-17 06:05] LABS: Potassium 5.7 mmol/L (3.5-5.1)
[2018-03-17] MEDS ORDERED: CALCIUM GLUCONATE 1 GM IVPB 1 GM/50 ML BAG IV ONE (06:14)
[2018-03-17] MEDS ORDERED: NA CHLORIDE 0.9% 1,000 ML IV ONE ×2 (06:30→07:19)
[2018-03-17] MEDS ORDERED: SOD POLYSTYREN SUL 15 GM/60 ML UCUP ONE (06:55)
[2018-03-17] MEDS ORDERED: NA CHLORIDE 0.9% 250 ML IV PRN ×2 (06:55→06:56)
[2018-03-17] MEDS: D5 0.45 NS 1,000 ML IV SCH ×2 (07:19→07:31)
--- NOTE | 2018-03-17 07:34 | EKG ---
Test Date: 2018-03-16 Test Time: 17:50:02 Utilization Reviewer: SUZIE MEASUREMENT RESULTS: Intervals: Rate: 122 MN: 162 QRSD: 88 QT: 312 QTc: 444 [place]: P: 76 MN: 162 QRS: -18 T: 84 INTERPRETIVE STATEMENTS: Sinus tachycardia Nonspecific ST abnormality Abnormal ECG Compared to ECG 02/09/2018 00:30:36 ST (T wave) deviation now present Sinus rhythm no longer present Myocardial infarct finding no longer present Electronically Signed On 03-17-18 07:33:11 CDT by Alberto Franks
[2018-03-17] MEDS ORDERED: D5W IV PRN (07:35)
[2018-03-17] MEDS ORDERED: NOREPINEPHRINE IV PRN (07:35)
--- NOTE | 2018-03-17 08:43 | RAD REPORT ---
EXAM DESCRIPTION: RAD - Chest Single View - 03/17/2018 6:35 am CLINICAL HISTORY: dyspnea Chest pain. COMPARISON: Chest Single View dated 03/16/2018; Chest Single View dated 03/16/2018; Chest Single View da tad 02/08/2018 FINDINGS: Portable technique limits examination quality. Tip of the endotracheal tube is above the damir. Enteric tube descends into the stomach. Right-sided venous catheter tip in the SVC. Mild linear opacities present left retrocardiac region. The heart is upper limit normal in size. No displaced fractures.Sternotomy wires present.
[2018-03-17 09:00] LABS: Absolute Lymphocytes (CBC) 1.2 K/uL (0.7-4.9); Absolute Monocytes 0.6 K/uL (0.1-1.3); Basophils % 0.2 % (0-1.3); Eosinophils % 0.1 % (0-4.4); Hematocrit 38.6 % (36.0-45.0); Lymphocytes % 5.8 % (15.3-44.8); MCH 32.3 pg (27.0-35.0); MCV 99.8 fL (80-100); MPV 11.4 fL (7.6-11.3); Monocytes % 2.8 % (3.3-12.3); RBC Red Blood Cell Count 3.87 M/uL (3.86-4.86)
[2018-03-17] MEDS ORDERED: CEFEPIME/SWI 1gm 1 GM/10 ML SYR IV SCH (09:00)
[2018-03-17] MEDS ORDERED: Meropenem 500 MG in NA CHLORIDE 0.9% 100 ML IV SCH (09:00)
[2018-03-17] MEDS ORDERED: CEFEPIME 1 GM/VIAL IV SCH (09:00)
[2018-03-17] MEDS ORDERED: Meropenem 1000 MG/VIAL IV SCH (09:00)
[2018-03-17] MEDS ORDERED: DOPAMINE/D5W 400 MG/250 ML BAG IV PRN (09:10)
[2018-03-17] MEDS ORDERED: GLUCAGON 1 MG/VIAL IM PRN (09:15)
[2018-03-17] MEDS ORDERED: D50W 25 GM/50 ML SYRINGE IV PRN (09:15)
[2018-03-17 09:17] LABS: Protime INR 1.35
[2018-03-17] MEDS: FAMOTIDINE 20 MG/2 ML VIAL IV SCH (09:23)
[2018-03-17 09:35] LABS: Potassium 5.7 mmol/L (3.5-5.1)
[2018-03-17] MEDS ORDERED: INSULIN -REGULAR HUMAN 50 UNIT/0.5 ML ML SQ SCH (10:00)
--- NOTE | 2018-03-17 11:26 | P.HP ---
Certification for Inpatient Patient admitted to: Inpatient With expected LOS: >2 Midnights Patient will require the following post-hospital care: None Practitioner: I am a practitioner with admitting privileges, knowledge of patient current condition, hospital course, and medical plan of care. Services: Services provided to patient in accordance with Admission requirements found in Title 42 Section 412.3 of the Code of Federal Regulations Patient History Date of Service: 03/17/18 Primary Care Provider: Shay Reason for admission: Septic shock History of Present Illness: I see the patient in [facility]. Called the patient was hypotensive and had a blood sugar in the 500's. She was transported to the ER. She was found to he tachycardic, hypotensive. She was acidotic and had the elevated glucose. She was admitted to the ICU on an insulin drip. She was hypotensive despite recieveing almost 7 lts of fluid. Was in increased distress and was intubated. Started on levophed as well to maintain her bp. Her u/a and chest xray were unremarkable. She did have a very high wbc. Allergies codeine Allergy (Verified 03/16/18 23:26) Unknown levofloxacin [From Levaquin] Allergy (Verified 03/16/18 23:27) Unknown Home Medications: Ascorbate Calcium [Vitamin C] 500 mg PO BID 02/09/18 Aspirin Chewable [Aspirin Chewable*] 81 mg PO DAILY 02/09/18 Atorvastatin Calcium [Lipitor*] 10 mg PO BEDTIME 02/09/18 Cholecalciferol (Vitamin D3) [Vitamin D3] 2,000 unit PO DAILY 02/09/18 Clopidogrel Bisulfate [Plavix*] 75 mg PO DAILY 02/09/18 Divalproex [Depakote Sprinkle*] 375 mg PO TID 02/09/18 Donepezil HCl [Aricept] 23 mg PO BEDTIME 02/09/18 Furosemide [Lasix] 40 mg PO DAILY 02/09/18 Insulin Aspart [Novolog Flexpen] 0 unit SQ SEECOM 02/09/18 Levalbuterol Tartrate [Xopenex Hfa] 2 puff IH Q4HP PRN 02/09/18 Lisinopril [Prinivil*] 5 mg PO BID 02/09/18 Melatonin 3 mg PO BEDTIME 02/09/18 Metoprolol Succinate 25 mg PO BEDTIME 02/09/18 Multivitamin with Minerals [Multivitamins with Minerals] 1 tab PO DAILY Nitroglycerin [Minitran] 1 patch TD DAILY 02/09/18 [place]-3/Dha/Epa/Fish Oil [Fish Oil 500 mg Softgel] 2 cap PO DAILY 02/09/18 Potassium Chloride [K-Tab ER] 2 tab PO DAILY 02/09/18 Ranolazine [Ranexa] 500 mg PO BID 02/09/18 Megestrol Acetate 20 ml PO BID 03/17/18 - Past Medical/Surgical History Diabetic: Yes -: Alzheimer's Disease -: DM Type 2 -: Hyperlipidemia -: HTN -: Atherosclerotic Heart Disease -: Mild intermittent Asthma -: GERD -: Generalized Muscle Weakness -: TIA -: Coronary Angioplasty implant and graft - Social History Smoking Status: Unknown if ever smoked Alcohol use: No CD- Drugs: No Caffeine use: No Place of Residence: [facility] Review of Systems is unable to be obtained (Patient is intubated) Physical Examination - Vital Signs Temperature: 96 F Blood Pressure: 78/32 Pulse: 109 Respirations: 34 Pulse Ox (%): 100 - Physical Exam General: Other (Intubated) HEENT: Atraumatic, PERRLA, Mucous membr. moist/pink, EOMI, Sclerae nonicteric Neck: Supple, 2+ carotid pulse no bruit, No LAD, Without JVD or thyroid abnormality Respiratory: Clear to auscultation bilaterally, Normal air movement Cardiovascular: Regular rate/rhythm, Normal S1 S2 Gastrointestinal: Normal bowel sounds, No tenderness Musculoskeletal: No tenderness Integumentary: No rashes Neurological: Normal gait, Normal speech, Normal strength at 5/5 x4 extr, Normal tone, Normal affect Lymphatics: No axilla or inguinal lymphadenopathy - Studies Laboratory Data (last 24 hrs) 03/16/18 18:05: PT 12.6 H, INR 1.07, APTT 29.4 03/16/18 18:05: WBC 35.4 H*, Hgb 13.7, Hct 42.9, Plt Count 174 03/16/18 18:05: Sodium 144, Potassium 5.1, BUN 63 H, Creatinine 2.80 H, Glucose 477 H*, Magnesium 2.6 H D, Total Bilirubin 0.7, AST 34, ALT 33, Alkaline Phosphatase 59, Amylase 243 H*, Lipase 65 L 03/16/18 17:56: PT Cancelled, INR Cancelled, APTT Cancelled 03/16/18 17:56: WBC Cancelled, Hgb Cancelled, Hct Cancelled, Plt Count Cancelled 03/16/18 17:56: Sodium Cancelled, Potassium Cancelled, BUN Cancelled, Creatinine Cancelled, Glucose Cancelled, Total Bilirubin Cancelled, AST Cancelled, ALT Cancelled, Alkaline Phosphatase Cancelled, Amylase Cancelled, Lipase Cancelled Microbiology Data (last 24 hrs): 03/16/18 17:45 Blood - Blood Anaerobic Blood Culture - Final Assessment and Plan - Problems (Diagnosis) (1) Septic shock Current Visit: Yes Status: Acute Plan: Patient is on levophed and dopamine. She did not have actones in her blood. Her acidosis is most likely due to sepsis. Continue fluids. Will add meropenem to the Vancomycin. I have called and spoken with the daughter. She called back and would like to continue the vent. However no cpr, no defibrillation if the patient worsens. (2) CAD (coronary artery disease) Onset Date: 02/10/18 Current Visit: No Status: Acute Plan: elevated troponin. However the patient is not stable for a cardiac work up. Qualifiers: Coronary Disease-Associated Artery/Lesion type: [place] artery [place] vs. transplanted heart: [place] heart Associated angina: without angina Qualified Code(s): I25.10 - Atherosclerotic heart disease of [place] coronary artery without angina pectoris (3) Dementia Onset Date: 02/10/18 Current Visit: No Status: Acute Plan: correction problem. No needs for her meds. Qualifiers: Dementia type: Alzheimer's disease (4) Upper GI bleed Current Visit: Yes Status: Acute Plan: Patient had coffee ground in her og tube. Will monitor her hb/hct. consult Dr. Mott. She is on pepcid. Will change to protonix drip. Discharge Plan: [facility] Plan to discharge in: Greater than 2 days - Advance Directives Does patient have a Living Will: No Does patient have a Durable POA for Healthcare: Yes - Code Status/Comfort Care Code Status Assessed: Yes Code Status: Do Not Resuscitate Physician Review: Patient Assessed, Agree with Above Assessment and Plan ( dicussed with daughter.) Critical Care: Yes Time Spent Managing Pts Care (In Minutes): 75
[2018-03-17] MEDS ORDERED: ETOMIDATE 20 MG/10 ML VIAL IV ONE (12:36)
--- NOTE | 2018-03-17 13:59 | P.DS ---
Admission Date: 03/16/18 Discharge Date: 03/17/18 Primary Care Provider: Shay Reason for Admission: Septic shock - Problems (1) Septic shock Current Visit: Yes Status: Acute (2) CAD (coronary artery disease) Onset Date: 02/10/18 Current Visit: No Status: Acute Qualifiers: Coronary Disease-Associated Artery/Lesion type: [place] artery [place] vs. transplanted heart: [place] heart Associated angina: without angina Qualified Code(s): I25.10 - Atherosclerotic heart disease of [place] coronary artery without angina pectoris (3) Dementia Onset Date: 02/10/18 Current Visit: No Status: Acute Qualifiers: Dementia type: Alzheimer's disease (4) Upper GI bleed Current Visit: Yes Status: Acute Brief History of Present Illness: I see the patient in [facility]. Called the patient was hypotensive and had a blood sugar in the 500's. She was transported to the ER. She was found to he tachycardic, hypotensive. She was acidotic and had the elevated glucose. She was admitted to the ICU on an insulin drip. She was hypotensive despite recieveing almost 7 lts of fluid. Was in increased distress and was intubated. Started on levophed as well to maintain her bp. Her u/a and chest xray were unremarkable. She did have a very high wbc. Hospital Course: Patient family decided on DNR. After discussing it amongst themselves they decided on withdrawal of care. Francis that theyre mother would not want this. The patient was extubated and quickly. Our best wishes to the family. Thank you for allowing us to take part in her care. Vital Signs/Physical Exam: Temp Pulse Resp BP Pulse Ox 96 F L 109 H 34 H 78/32 L 100 03/17/18 11:32 03/17/18 11:32 03/17/18 11:32 03/17/18 11:32 03/17/18 11:32 General: Other () Laboratory Data at Discharge: WBC 20.9 K/uL (4.3-10.9) H* D 03/17/18 08:49 Hgb 12.5 g/dL (12.0-15.0) 03/17/18 08:49 Hct 38.6 % (36.0-45.0) 03/17/18 08:49 Plt Count 173 K/uL (152-406) 03/17/18 08:49 PT 16.0 SECONDS (9.5-12.5) H 03/17/18 08:49 INR 1.35 03/17/18 08:49 APTT 31.8 SECONDS (24.3-36.9) 03/17/18 08:49 Sodium 147 mmol/L (136-145) H 03/17/18 08:49 Potassium 5.7 mmol/L (3.5-5.1) H* 03/17/18 08:49 BUN 63 mg/dL (7-18) H 03/17/18 08:49 Creatinine 2.50 mg/dL (0.55-1.3) H 03/17/18 08:49 Glucose 220 mg/dL (74-106) H 03/17/18 08:49 Magnesium 2.6 mg/dL (1.8-2.4) H D 03/16/18 18:05 Total Bilirubin 0.7 mg/dL (0.2-1.0) 03/16/18 18:05 AST 34 U/L (15-37) 03/16/18 18:05 ALT 33 U/L (12-78) 03/16/18 18:05 Alkaline Phosphatase 59 U/L (45-117) 03/16/18 18:05 Troponin I 0.56 ng/mL (0.0-0.045) H* 03/17/18 02:10 Amylase 243 U/L (25-115) H* 03/16/18 18:05 Lipase 65 U/L (73-393) L 03/16/18 18:05 Home Medications: Ascorbate Calcium [Vitamin C] 500 mg PO BID 02/09/18 Aspirin Chewable [Aspirin Chewable*] 81 mg PO DAILY 02/09/18 Atorvastatin Calcium [Lipitor*] 10 mg PO BEDTIME 02/09/18 Cholecalciferol (Vitamin D3) [Vitamin D3] 2,000 unit PO DAILY 02/09/18 Clopidogrel Bisulfate [Plavix*] 75 mg PO DAILY 02/09/18 Divalproex [Depakote Sprinkle*] 375 mg PO TID 02/09/18 Donepezil HCl [Aricept] 23 mg PO BEDTIME 02/09/18 Furosemide [Lasix] 40 mg PO DAILY 02/09/18 Insulin Aspart [Novolog Flexpen] 0 unit SQ SEECOM 02/09/18 Levalbuterol Tartrate [Xopenex Hfa] 2 puff IH Q4HP PRN 02/09/18 Lisinopril [Prinivil*] 5 mg PO BID 02/09/18 Melatonin 3 mg PO BEDTIME 02/09/18 Metoprolol Succinate 25 mg PO BEDTIME 02/09/18 Multivitamin with Minerals [Multivitamins with Minerals] 1 tab PO DAILY Nitroglycerin [Minitran] 1 patch TD DAILY 02/09/18 [place]-3/Dha/Epa/Fish Oil [Fish Oil 500 mg Softgel] 2 cap PO DAILY 02/09/18 Potassium Chloride [K-Tab ER] 2 tab PO DAILY 02/09/18 Ranolazine [Ranexa] 500 mg PO BID 02/09/18 Megestrol Acetate 20 ml PO BID 03/17/18 Time spent managing pt's care (in minutes): 20
--- NOTE | 2018-03-18 06:50 | EKG ---
Test Date: 2018-03-17 Test Time: 09:06:25 Bead Machine Operator: JOHAN MEASUREMENT RESULTS: Intervals: Rate: 125 IA: 166 QRSD: 86 QT: 286 QTc: 412 [place]: P: 59 IA: 166 QRS: -31 T: 119 INTERPRETIVE STATEMENTS: Sinus tachycardia Left axis deviation Possible Anterior infarct, age undetermined Abnormal ECG Compared to ECG 03/16/2018 17:50:02 Left-axis deviation now present Myocardial infarct finding now present ST (T wave) deviation no longer present Electronically Signed On 03-18-18 06:50:12 CDT by Alberto Franks
--- NOTE | 2018-03-19 16:10 | CON ---
ICU bed 2. An 82-year-old female. History Of Present Illness: I arrived in the ICU to the above consult, however, came to know that th e family has already withdrawn all the care and only DNR status. Given this, the patient does not ne ed any new GI consult, only supportive care. JESS/BERNICE Voice ID: [id number] Report ID: [id number]
[2018-03-19] MEDS ORDERED: VANCOMYCIN 1 GM in NA CHLORIDE 0.9% 250 ML IVPB SCH (20:00)
== END 2018-03-17 13:05 | disposition expired | DRG 871 ==
LOC: ER 17:40 → ERHOLD 19:19 → 3RD-ICU 20:38
PROVIDERS: ADMIT Internal Medicine; ATTEND Internal Medicine
PROC: 02HV33Z Insertion of Infusion Device into Superior Vena Cava, Percutaneous Approach (ICD-10-PCS; principal; 2018-03-16)
PROC: 3E043XZ Introduction of Vasopressor into Central Vein, Percutaneous Approach (ICD-10-PCS; 2018-03-16)
PROC: 0BH17EZ Insertion of Endotracheal Airway into Trachea, Via Natural or Artificial Opening (ICD-10-PCS; 2018-03-17)
PROC: 5A1935Z Respiratory Ventilation, Less than 24 Consecutive Hours (ICD-10-PCS; 2018-03-17)
DX: A41.9 Sepsis, unspecified organism (principal); R65.21 Severe sepsis with septic shock; K92.2 Gastrointestinal hemorrhage, unspecified; E87.2 Acidosis; I25.10 Atherosclerotic heart disease of native coronary artery without angina pectoris; G30.9 Alzheimer's disease, unspecified; F02.80 Dementia in other diseases classified elsewhere, unspecified severity, without behavioral disturbance, psychotic disturbance, mood disturbance, and anxiety; Z66 Do not resuscitate; Z51.5 Encounter for palliative care; E11.65 Type 2 diabetes mellitus with hyperglycemia; E78.5 Hyperlipidemia, unspecified; I10 Essential (primary) hypertension; J45.20 Mild intermittent asthma, uncomplicated; M62.81 Muscle weakness (generalized); K21.9 Gastro-esophageal reflux disease without esophagitis; Z79.4 Long term (current) use of insulin; Z79.82 Long term (current) use of aspirin; Z79.02 Long term (current) use of antithrombotics/antiplatelets; Z88.1 Allergy status to other antibiotic agents; Z88.5 Allergy status to narcotic agent; Z95.5 Presence of coronary angioplasty implant and graft; Z86.73 Personal history of transient ischemic attack (TIA), and cerebral infarction without residual deficits
CPT/HCPCS: 36415; 70450; 71045; 71250; 72125; 80048; 80076; 80164; 81001; 81003; 82010; 82150; 82550; 82553; 82805; 82962; 83605; 83690; 83735; 83880; 84145; 84484; 85025; 85610; 85652; 85730; 86140; 86850; 86900; 86901; 87040; 87077; 87086; 87088; 87186; 93005; 94002; 94660; 99285; J0610; J0692; J1265; J3370; J7030